=== PATIENT | male | born 1940 | race Caucasian/White ===

== ENCOUNTER 2017-01-08 16:06 | Inpatient (IN) | payer MEDICARE, OTHER ==
[~2017-01-08] VITALS: Ht 180.3 cm; Wt 93.5 kg
[~2017-01-08 16:06] MED LIST: ADVIL200 MG PO; AZITHROMYCIN250 MG PO; CEFPODOXIME PR200 MG PO; FLOMAX 0.4MG C0.4 MG PO; HYDROCODONE 5/500 OR; RAPAFLO8 MG PO; VALIUM 10MG TAB10 MG PO
[2017-01-08 16:08] VITALS: BP 117/68
[2017-01-08] MEDS ORDERED: FLOMAX 0.4MG C0.4 MG PO (16:16)
[2017-01-08] MEDS ORDERED: PRIMIDONE 50 MG50 MG PO (16:18)
[2017-01-08 16:42] LABS: HEMOGLOBIN 14.9 g/dL (14.1-18.0); LYMPH # 1.5 K/mm3 (0.7-4.5); LYMPH % 20.6 % (10-50)
[2017-01-08 16:46] LABS: ARTERIAL PO2 83.4 MMHG (80-100); ARTERIAL TCO2 56.8 MMOL/L (23-27)
[2017-01-08 16:47] LABS: ALLEN'S TEST Y; ARTERIAL ABE 24.7 MMOL/L (-2.4-+2.3); OXYGEN 3
--- NOTE | 2017-01-08 18:03 | Emergency Room Report ---
History of Present Illness Time Seen by MD Delacruz Presenting Problem in Triage Pt arrived:Wheelchair Presenting Problem:PT C/O INCREASED WEAKNESS TODAY. STATES PT HAS BEEN SICK SINCE OCT OF THIS YEAR. PT IS D/T BEGIN RADIATION TO HIS THROAT FOR A DX OF THROAT CANCER. 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 N Clinical Suspician of Infection? N Mental Status: 1 - Regular (Normal Baseline) Sepsis Risk:Possible Sepsis Risk Have you (or family members/close friends) recently traveled outside the [place]? N If Yes, where/when: Have you had exposure to infectious disease within the past month? N TB? Other? Specify: Source patient, RN notes reviewed, family, old records Exam Limitations no limitations Comment pt with hx of laryngeal cancer - who has been more somulent lately and presents to ed - he is to start therapy next week and he has not used his bpap this week Cardiac Chest Pain Chest pain indicative of cardiac No Timing/Duration this evening Severity moderate ALLERGIES Coded Allergies: No Known Allergies (10/31/16) Home Medications Reported Medications TAMSULOSIN HCL (Flomax 0.4MG) 0.4 MG PO QHS Primidone (Primidone) 25 MG PO QHS Diazepam (Valium 10MG) 10 MG PO BID Ibuprofen (Advil) 200 MG PO PRN History Medical History General CAD? No Angina: No [place]: No Hypertension? No Hyperlipidemia? No CHF? No DVT? No PE? No COPD? No Asthma? No Anemia? No GERD? No Gastric ulcers? No GI Bleed? No Hernia? Yes Thyroid Problems? No Hypothyroidism? No CVA? No Seizures? No Diabetes? No Renal Insuffiency? No End Stage Renal Disease? No UTI? No Stones? Yes BPH? No GB Disease: No Nephritic Syndrome? No Asplenia? No Hepatitis? No Sickle Cell Disease? No Arthritis? No Migraines? No Cataracts? No Glaucoma? No MRSA? No HIV? No TB? No Anxiety? No Depression? No Cancer? Yes Site: PROSTATE; THROAT Immunization Hx DT/Tetanus Unknown Flu NEVER Pneumonia NEVER Surgical Hx Previous Surgery?Y COLONOSCOPY KIDNEY STONES HAND Back Surgery TONSILS Family History Family Hx Diabetes No CAD No Hypertension Yes Hyperlipidemia No Cancer Yes TB No Social History Smoking Hx Smoker: Former Smoker Tobacco: Yes Type Cigarettes Packs/day < 1 Pack Alcohol Alcohol: No Drugs none Review of Systems All Other Systems Reviewed and Negative Constitutional denies fever Eyes denies drainage ENT denies: ear pain, epistaxis, throat pain. Respiratory see HPI, denies cough, shortness of breath, denies wheezing Cardiovascular denies chest pain, denies palpitations, denies syncope Gastrointestinal denies abdominal pain, denies diarrhea, denies vomiting Genitourinary denies: dysuria, frequency, hesitancy, hematuria. Musculoskeletal denies back pain, denies joint pain, denies joint swelling, denies neck pain Skin denies rash Psychiatric/Neurological denies headache, denies seizure Physical Exam Vital Signs Vital Signs Date Time Temp Pulse Resp B/P Pulse O2 O2 Flow FiO2 Ox Delivery Rate 01/08 1925 98.6 102 20 120/68 95 01/08 1822 98 20 124/72 96 01/08 1736 100 20 135/83 95 01/08 1631 87 01/08 1608 98.6 97 22 117/68 87 - WBC >12,000 or <4,000 or 10% bands? 2 or more SIRS Criteria Met? B/P:120/68 MAP:84 Creatinine >2.0? UA output<0.5ml/kg/hr for 2 hrs? Platelet count >100,000? Lactate >2.0mmol/1? INR >1.2 or PTT > than 60 sec? Evidence of Organ Dysfunction? Provider documented clinical suspician of infection? N Sepsis Criteria Count: 2 Sepsis Risk: Possible Sepsis Risk General Appearance no apparent distress Eye Exam - bilateral eye PERRL, bilateral eye EOMI Ear, Nose, Throat no acute changes Neck supple Respiratory Status No: respiratory distress. Lung Sounds bilateral: decreased breath sounds. 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 No Results/Orders Laboratory Tests 01/08/17 1644: ABG pH 7.21 *L, ABG pCO2 (Temp Corrct 135.6 H, ABG pO2 (Temp Correct 83.4, ABG HCO3 52.6 H, ABG Total CO2 56.8 H, ABG O2 Sat (Calculated) 94.8, ABG Base Excess 24.7 H, Braeden Test Y, Blood Gas Comments R/R 01/08/17 1625: Lactic Acid 0.6 01/08/17 162: Creatine Kinase 52, CK-MB (CK-2) Rel Index 2.9, CK and CKMB Interp 1.5, Troponin I < 0.02 01/08/17 1625: Sodium 140, Potassium 4.5, Chloride 96 L, Carbon Dioxide 52 *H, BUN 11, Creatinine 0.7 L, Estimated Creat Clear 115, Estimated GFR (MDRD) 110, Glucose 115 H, Calcium 9.5, Total Bilirubin 0.3, AST 15, ALT 22, Alkaline Phosphatase 45 L, Total Protein 7.6, Albumin 3.1 L, Globulin 4.5 H, Albumin/Globulin Ratio 0.7 L, WBC 7.4, RBC 5.01, Hgb 14.9, Hct 50.7, MCV 101.2 H, RDW 12.8, Plt Count 265, MPV 6.2 L, Gran % 72.3, Gran # 5.3, Lymphocytes % 20.6, Monocytes % 5.0, Eosinophils % 1.6, Basophils % 0.5, Lymphocytes # 1.5, Monocytes # 0.4, Eosinophils # 0.1, Basophils # 0.0, PUBS MCHC 29.6 L, MCH 29.9 Current Medication Orders Sig/Christian Start time Last Medication Dose Route Stop Time Status Admin Albuterol/Ipratropium 0 .STK-MED ONE 01/08 1634 DC INH Albuterol/Ipratropium 3 ML ONCE ONE 01/08 1630 DC 01/08 INH 01/08 1631 1630 Sodium Chloride 10 ML PRN PRN 01/08 1630 AC IV 01/09 1620 Orders Procedure Date/time Status Decision to admit 01/08 1829 Active RT Aerosol Treatment, Provide 01/08 1630 Active CARDIAC ENZYMES 01/08 1625 Complete URINALYSIS/COMPLETE 01/08 1623 Active ELECTROCARDIOGRAM REQUEST 01/08 1621 Active RT REQUEST DUONEB 01/08 1621 Active ARTERIAL BLOOD GAS REQUEST 01/08 1621 Active IV SALINE LOCK 01/08 1621 Active OXYGEN PER NURSE 01/08 1621 Active SOLID PLASTERER 01/08 1621 Active CULTURE, BLOOD 01/08 1621 Active LACTIC ACID 01/08 1621 Complete CBC WITH AUTO DIFF 01/08 1621 Complete CHEM 12 PROFILE 01/08 1621 Complete 12 LEAD EKG-BRADLEY (INITIAL) 01/08 UNK Active CM/EKG 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 ST/Twave chgs XRAY/CT/US XRAY/CT/US XRAY chest XR interpretation by reviewed by me Xray Results normal/NAD Departure Departure Time of Disposition 1831 Disposition Still a Patient Clinical Impression Primary Impression: Respiratory failure Qualifiers: Chronicity: acute on chronic Respiratory failure complication: hypercapnia Qualified Code: J96.22 - Acute and chronic respiratory failure with hypercapnia Secondary Impressions: Laryngeal cancer Condition STABLE Referrals Salas Kumari MD (Family) discussed with dr mary anne RESENDEZ Critical Care Critical Care No at 1948
--- NOTE | 2017-01-08 18:47 | RADIOLOGY REPORT PS360 ---
CHEST-PORTABLE COMPARISON: PA and lateral chest 10/31/2016 HISTORY: Weakness, shortness of breath TECHNIQUE: Portable upright chest FINDINGS: This is a somewhat poor inspiration however lung martinez are clear of infiltrate. There is minimal scarring or atelectasis at the left base. Cardiac size is normal and the vascularity is normal and is no pleural fluid. IMPRESSION: Possible minimal left basilar atelectasis otherwise negative chest
[2017-01-08 20:35] VITALS: BP 120/68
[2017-01-08 20:50] VITALS: BP 144/80
[2017-01-08] MEDS ORDERED: SYMBICORT1 AER IH (20:52)
[2017-01-09] VITALS (17 sets, daily range): BP systolic 87–160; BP diastolic 48–80
[2017-01-09 07:04] LABS: HEMOGLOBIN 14.5 g/dL (14.1-18.0); LYMPH # 1.7 K/mm3 (0.7-4.5); LYMPH % 18.1 % (10-50)
--- NOTE | 2017-01-09 08:39 | HISTORY AND PHYSICAL REPORT ---
Demographics: Admit date: 01/08/17 Chief complaint: Mental status change PRIMARY DIAGNOSIS: acute respiratory failure Allergies: Coded Allergies: No Known Allergies (10/31/16) History of present illness: History of present illness: 76-year-old male with chronic obstructive pulmonary disease and recent diagnosis of laryngeal cancer presented to the emergency department with change in mental status. Patient was described as being increasingly drowsy by family. Workup in the emergency department revealed hypercapnia and respiratory failure. Patient was admitted and placed on BiPAP. The rest of his labs on admission were unremarkable and chest x-ray did not reveal any pneumonia. This morning the patient is drowsy and does not respond to vocal or tactile stimulus. Nursing staff reports O2 sats on routine vital checks in the 50s and 60s. Patient's BiPAP is in place. Repeat ABG this morning shows worsening of his respiratory failure with pH of 6.9. Past medical history: Family HX Family Hx Insignificant No Diabetes No CAD No Hypertension Yes Hyperlipidemia No Cancer Yes TB No Immunization HX DT/Tetanus Unknown Flu NEVER Pneumonia NEVER TB Test in last year No General CAD? No Angina: No [place]: No Hypertension? No Hyperlipidemia? No CHF? No DVT? No PE? No COPD? No Asthma? No Anemia? No GERD? No Gastric ulcers? No GI Bleed? No Hernia? Yes Thyroid Problems? No Hypothyroidism? No CVA? No Seizures? No Diabetes? No Renal Insuffiency? No UTI? No Stones? Yes BPH? No GB Disease: No Nephritic Syndrome? No Asplenia? No Hepatitis? No Sickle Cell Disease? No Arthritis? No Migraines? No Cataracts? No Glaucoma? No MRSA? No HIV? No TB? No Anxiety? No Depression? No Cancer? Yes Site: PROSTATE; THROAT Past Surgical HX Previous Surgery?Y COLONOSCOPY KIDNEY STONES HAND Back Surgery TONSILS Current home meds: Reported Medications BUDESONIDE/FORMOTEROL FUMARATE (Symbicort 80-4.5 Mcg Inhaler) 1 PUFF IH BID TAMSULOSIN HCL (Flomax 0.4MG) 0.4 MG PO QHS Primidone (Primidone) 25 MG PO QHS Diazepam (Valium 10MG) 10 MG PO BID Ibuprofen (Advil) 200 MG PO PRN Social Hx: Smoking HX Tobacco Yes Type Cigarettes Packs/day < 1 PACK Are you/the child exposed to second-hand smoke: Yes Alcohol Alcohol: No Hx of Drug Use Drug Use? No Patien't marital status is Patient's support system is good Review of systems: Constitutional weakness. Respiratory shortness of breath, SOB with excertion. Cardiovascular no symptoms reported Gastrointestinal/Abdominal no symptoms reported Genitourinary no symptoms reported. Musculoskeletal no symptoms reported. Neurological Yes: no symptoms reported. Exam: Lab data for last 24 hours: Laboratory Tests 01/09/17 0639: Sodium 141, Potassium 5.4 H, Chloride 98, Carbon Dioxide 49 *H, BUN 12, Creatinine 0.7 L, Estimated Creat Clear 113, Estimated GFR (MDRD) 110, Glucose 113 H, Calcium 9.4, WBC 9.2, RBC 4.73, Hgb 14.5, Hct 48.7, MCV 103.0 H, RDW 12.7, Plt Count 254, MPV 6.2 L, Gran % 75.0, Gran # 6.9, Lymphocytes % 18.1, Monocytes % 5.4, Eosinophils % 0.9, Basophils % 0.6, Lymphocytes # 1.7, Monocytes # 0.5, Eosinophils # 0.1, Basophils # 0.1, PUBS MCHC 29.9 L, MCH 30.7 01/08/17 1644: ABG pH 7.21 *L, ABG pCO2 (Temp Corrct 135.6 H, ABG pO2 (Temp Correct 83.4, ABG HCO3 52.6 H, ABG Total CO2 56.8 H, ABG O2 Sat (Calculated) 94.8, ABG Base Excess 24.7 H, Braeden Test Y, Blood Gas Comments R/R 01/08/17 1625: Lactic Acid 0.6 01/08/17 1625: Creatine Kinase 52, CK-MB (CK-2) Rel Index 2.9, CK and CKMB Interp 1.5, Troponin I < 0.02 01/08/17 1625: Sodium 140, Potassium 4.5, Chloride 96 L, Carbon Dioxide 52 *H, BUN 11, Creatinine 0.7 L, Estimated Creat Clear 115, Estimated GFR (MDRD) 110, Glucose 115 H, Calcium 9.5, Total Bilirubin 0.3, AST 15, ALT 22, Alkaline Phosphatase 45 L, Total Protein 7.6, Albumin 3.1 L, Globulin 4.5 H, Albumin/Globulin Ratio 0.7 L, WBC 7.4, RBC 5.01, Hgb 14.9, Hct 50.7, MCV 101.2 H, RDW 12.8, Plt Count 265, MPV 6.2 L, Gran % 72.3, Gran # 5.3, Lymphocytes % 20.6, Monocytes % 5.0, Eosinophils % 1.6, Basophils % 0.5, Lymphocytes # 1.5, Monocytes # 0.4, Eosinophils # 0.1, Basophils # 0.0, PUBS MCHC 29.6 L, MCH 29.9 Microbiology 01/08 1625 BLOOD: Anaerobic Blood Culture - RECD 01/08 1625 BLOOD: Aerobic Blood Culture - RECD 01/08 1625 BLOOD: Anaerobic Blood Culture - RECD 01/08 1625 BLOOD: Aerobic Blood Culture - RECD Admission vital signs: 1ST Vital Signs Result Date Time Pulse Ox 87 01/08 1608 B/P 117/68 01/08 1608 Temp 98.6 01/08 1608 Pulse 97 01/08 1608 Resp 22 01/08 1608 O2 Delivery OXYGEN 01/08 2035 Additional information: Patient is not arousable but does not appear to be in any distress. Pupils are reactive to light. BiPAP is in place. Neck is Without carotid bruits or lymphadenopathy. Lungs have expiratory wheezes with fair aeration even with BiPAP. Heart has a regular rate and rhythm. Abdomen is soft and nontender. Extremities are warm to the touch. Plan: Problem List 1. Laryngeal cancer 2. Acute respiratory failure with hypoxia and hypercapnia 3. Chronic obstructive pulmonary disease with (acute) exacerbation Plan: Transfer to special care unit this morning. Patient be intubated and placed on ventilator to reverse his hypercapnia. Continue IV fluids, Solu-Medrol, aerosols. Patient's condition is guarded. at 0838
[2017-01-09 09:33] LABS: ARTERIAL PO2 39.3 MMHG (80-100)
[2017-01-09 09:34] LABS: ALLEN'S TEST PATIENT UNABLE; OXYGEN 100; PRESSURE SUPPORT 6; VENT RATE 15
--- NOTE | 2017-01-09 10:54 | PHARMACY CLINIC NOTE ---
Patient Demographics Patient Demographics Admission date: 01/08/17 Date: 01/09/17 Time: 1054 Allergies Coded Allergies: No Known Allergies (10/31/16) HEIGHT- FT: 5 IN: 11.00 K.997 VTE General Information Labs: Laboratory Tests 01/09 01/08 0639 1625 Hematology Hgb (14.1 - 18.0 g/dL) 14.5 14.9 Hct (42.0 - 52.0 %) 48.7 50.7 Plt Count (142 - 424 K/mm3) 254 265 Disclaimer The following section includes nursing documentation that has been pulled in for pharmacy review. Patient's VTE score: 4 Patient's VTE Risk: LOW RISK Clinical trial participant? No VTE prophylaxis [id number] VTE prophylaxis ordered? Yes Type of prophylaxis/treatment: DEBO at 1052
[2017-01-09 10:59] LABS: URINE BILIRUBIN - DIPSTICK NEGATIVE (NEG); URINE BLOOD 2+ (NEG)
[2017-01-09 11:09] LABS: ARTERIAL PO2 278.7 MMHG (80-100); ARTERIAL TCO2 42.9 MMOL/L (23-27)
[2017-01-09 11:10] LABS: ALLEN'S TEST PATIENT UNABLE; ARTERIAL ABE 17.6 MMOL/L (-2.4-+2.3); OXYGEN 100; VENT RATE 24
--- NOTE | 2017-01-09 15:46 | CONSULT NOTE ---
Pharmacokinetic Consult Date of consult: 01/09/17 Time of consult: 1543 Referring provider: DR. VANEGAS Reason for consult: GENTAMICIN DOSING Allergies: Coded Allergies: No Known Allergies (10/31/16) Home Medications: Reported Medications BUDESONIDE/FORMOTEROL FUMARATE (Symbicort 80-4.5 Mcg Inhaler) 1 PUFF IH BID TAMSULOSIN HCL (Flomax 0.4MG) 0.4 MG PO QHS Primidone (Primidone) 25 MG PO QHS Diazepam (Valium 10MG) 10 MG PO BID Ibuprofen (Advil) 200 MG PO PRN Height (feet): 5 Height (inches): 11.00 Medical History: CAD? No Angina: No [place]: No Hypertension? No Hyperlipidemia? No CHF? No DVT? No PE? No COPD? No Asthma? No Anemia? No GERD? No Gastric ulcers? No GI Bleed? No Hernia? Yes Thyroid Problems? No Hypothyroidism? No CVA? No Seizures? No Diabetes? No Renal Insuffiency? No UTI? No Stones? Yes BPH? No GB Disease: No Nephritic Syndrome? No Asplenia? No Hepatitis? No Sickle Cell Disease? No Arthritis? No Migraines? No Cataracts? No Glaucoma? No MRSA? No HIV? No TB? No Anxiety? No Depression? No Cancer? Yes Site: PROSTATE; THROAT Labs: Laboratory Tests 01/09/17 1055: ABG pH 7.48 H, ABG pCO2 (Temp Corrct 57.2 H, ABG pO2 (Temp Correct 278.7 H, ABG HCO3 41.2 H, ABG Total CO2 42.9 H, ABG O2 Sat (Calculated) 99.3, ABG Base Excess 17.6 H, Braeden Test PATIENT UNABLE, Vent Rate 24, Tidal Volume 500, POC PEEP 5, Blood Gas Comments RIGHT RADIAL 01/09/17 0810: ABG pH 6.97 *L, ABG pO2 (Temp Correct 39.3 *L, ABG O2 Sat (Calculated) 63.1 *L, Braeden Test PATIENT UNABLE, Vent Rate 15, Tidal Volume BIPAP 12/6, Pressure Support 6, Blood Gas Comments RIGHT RADIAL 01/09/17 0639: Sodium 141, Potassium 5.4 H, Chloride 98, Carbon Dioxide 49 *H, BUN 12, Creatinine 0.7 L, Estimated Creat Clear 113, Estimated GFR (MDRD) 110, Glucose 113 H, Calcium 9.4, WBC 9.2, RBC 4.73, Hgb 14.5, Hct 48.7, MCV 103.0 H, RDW 12.7, Plt Count 254, MPV 6.2 L, Gran % 75.0, Gran # 6.9, Lymphocytes % 18.1, Monocytes % 5.4, Eosinophils % 0.9, Basophils % 0.6, Lymphocytes # 1.7, Monocytes # 0.5, Eosinophils # 0.1, Basophils # 0.1, PUBS MCHC 29.9 L, MCH 30.7 01/08/17 1644: ABG pH 7.21 *L, ABG pCO2 (Temp Corrct 135.6 H, ABG pO2 (Temp Correct 83.4, ABG HCO3 52.6 H, ABG Total CO2 56.8 H, ABG O2 Sat (Calculated) 94.8, ABG Base Excess 24.7 H, Braeden Test Y, Blood Gas Comments R/R 01/08/17 1625: Lactic Acid 0.6 01/08/17 1625: Creatine Kinase 52, CK-MB (CK-2) Rel Index 2.9, CK and CKMB Interp 1.5, Troponin I < 0.02 01/08/17 1625: Sodium 140, Potassium 4.5, Chloride 96 L, Carbon Dioxide 52 *H, BUN 11, Creatinine 0.7 L, Estimated Creat Clear 115, Estimated GFR (MDRD) 110, Glucose 115 H, Calcium 9.5, Total Bilirubin 0.3, AST 15, ALT 22, Alkaline Phosphatase 45 L, Total Protein 7.6, Albumin 3.1 L, Globulin 4.5 H, Albumin/Globulin Ratio 0.7 L, WBC 7.4, RBC 5.01, Hgb 14.9, Hct 50.7, MCV 101.2 H, RDW 12.8, Plt Count 265, MPV 6.2 L, Gran % 72.3, Gran # 5.3, Lymphocytes % 20.6, Monocytes % 5.0, Eosinophils % 1.6, Basophils % 0.5, Lymphocytes # 1.5, Monocytes # 0.4, Eosinophils # 0.1, Basophils # 0.0, PUBS MCHC 29.6 L, MCH 29.9 Microbiology 01/10 916 SPUTUM: Sputum Culture - RECD 01/10 916 SPUTUM: Gram Stain - RECD 01/08 162 BLOOD: Anaerobic Blood Culture - RECD 01/08 162 BLOOD: Aerobic Blood Culture - RECD 01/08 162 BLOOD: Anaerobic Blood Culture - RECD 01/08 162 BLOOD: Aerobic Blood Culture - RECD Plan: BASED ON PATIENT'S FACTORS, RECOMMEND STARTING GENTAMICIN 360 MG (~5 MG/KG DBW OF 75 KG) Q24H AT THIS TIME. WILL OBTAIN LEVELS TONIGHT AND IN THE AM TO DETERMINE CLEARANCE. PHARMACY WILL FOLLOW DAILY AND ADJUST APPROPRIATE. CHARITO YANEZ, PHARMD at 4510
--- NOTE | 2017-01-09 16:38 | Procedure Note ---
Bedside procedures Intubation Date of procedure: 01/09/17 Time of procedure: 929 Intubation: Risks/benefits discussed with pt/guardian? No (pt obtunded /emergency) Time of Intubation 929 Intubation Method orotracheal Tube Size (cm) 6.0 Medications Atropine mg- (none) Breath Sounds after Intubation: equal Intubation Complications no complications, pt with laryngeal cancer , only could use small tube Post Intubation Xray Yes at 5543
--- NOTE | 2017-01-09 17:15 | RADIOLOGY REPORT PS360 ---
CHEST-PORTABLE Ordering Physician: Salas Kumari MD Patient Age: 76 years: Male HISTORY: ET TUBE PLACEMENT TECHNIQUE: Portable chest for ET tube placement FINDINGS . ET tube is in place. The tip is at the level of the head of the clavicles ~. Adequate position. The lungs appear well expanded and clear. Improved expansion versus chest film 01/08/2017, which showed mild bibasilar atelectasis. There is still some mild right basilar scarring and atelectasis 5 cm above the danielito.. IMPRESSION: ------ ET tube satisfactory position. A better expansion of lungs versus yesterday's study. Trace Mild bibasilar atelectasis most evident on right lung base
[2017-01-10] VITALS (25 sets, daily range): BP systolic 97–1202; BP diastolic 53–74
[2017-01-10 05:36] LABS: LYMPH # 0.9 K/mm3 (0.7-4.5); LYMPH % 13.6 % (10-50)
[2017-01-10 05:39] LABS: HEMOGLOBIN 12.8 g/dL (14.1-18.0)
[2017-01-10 05:51] LABS: GENTAMYCIN RANDOM 2.1 ug/ml (4.0-10.0)
[2017-01-10 06:27] LABS: ARTERIAL ABE 15.7 MMOL/L (-2.4-+2.3); ARTERIAL PO2 145.7 MMHG (80-100); ARTERIAL TCO2 38.7 MMOL/L (23-27); OXYGEN 60; VENT RATE 16
[2017-01-10 06:28] LABS: ALLEN'S TEST PATIENT UNABLE
--- NOTE | 2017-01-10 06:42 | RADIOLOGY REPORT PS360 ---
CHEST-PORTABLE HISTORY: Respiratory failure ET TUBE PLACEMENT ORDERING PHYSICIAN: Salas Kumari MD PATIENT AGE: 76 years COMPARISON: 01/09/2017 FINDINGS: Endotracheal tube tip is in good position well above the danielito at least 5 cm above the expected position of the danielito. There remains minimal bibasilar atelectasis. Right basilar atelectasis has improved. COPD suspected. IMPRESSION: Good position of endotracheal tube with mild bibasilar atelectasis
--- NOTE | 2017-01-10 06:50 | ACUTE CARE PROGRESS NOTE (QUA) ---
Progress Notes Subjective Date 01/10/17 Time 0643 Note Patient has now been intubated for the last 24 hours. He has done well on mechanical ventilation and sedated on propofol. Nursing staff reports a decrease in urine output. Patient did have fevers yesterday afternoon and was started on antibiotics per sepsis protocol. Patient is resting comfortably on mechanical ventilation. Lungs are clear to auscultation. Heart has regular rate and rhythm. Extremities are without swelling. Trial of CPAP this morning to assess readiness for extubation. I have discussed with his . We will attempt to contact his oncologist as well to discuss the case Objective Findings Last VS-Temp:98.6 B/P:106/60 Pulse:64 Resp:17 SaO2:98 OXYGEN Last weight lbs:194 oz:0 K.998 Method:Bed Scales Laboratory Tests 01/10/17 0540: ABG pH 7.59 *H, ABG pCO2 (Temp Corrct 40.3, ABG pO2 (Temp Correct 145.7 H, ABG HCO3 37.4 H, ABG Total CO2 38.7 H, ABG O2 Sat (Calculated) 98.9, ABG Base Excess 15.7 H, Braeden Test PATIENT UNABLE, Vent Rate 16, Tidal Volume 500, POC PEEP 5, Blood Gas Comments RIGHT BRACHIAL 01/10/17 0510: Sodium 137, Potassium 3.8, Chloride 100, Carbon Dioxide 37 H, BUN 30 H, Creatinine 1.0, Estimated Creat Clear 79, Estimated GFR (MDRD) 73, Glucose 136 H, Calcium 8.5, Total Bilirubin 0.3, AST 19, ALT 19, Alkaline Phosphatase 36 L, Total Protein 5.8 L, Albumin 2.2 L, Globulin 3.6 H, Albumin/Globulin Ratio 0.6 L, WBC 6.7, RBC 4.15 L, Hgb 12.8 L, Hct 40.6 L, MCV 98.0 H, RDW 12.9, Plt Count 212, MPV 7.1 L, Gran % 79.6, Gran # 5.3, Lymphocytes % 13.6, Monocytes % 5.8, Eosinophils % 0.8, Basophils % 0.2, Lymphocytes # 0.9, Monocytes # 0.4, Eosinophils # 0.1, Basophils # 0.0, PUBS MCHC 31.5 L, MCH 30.8 , Random Gentamicin 2.1 L 01/09/17 1910: Random Gentamicin 8.5 01/09/17 1055: ABG pH 7.48 H, ABG pCO2 (Temp Corrct 57.2 H, ABG pO2 (Temp Correct 278.7 H, ABG HCO3 41.2 H, ABG Total CO2 42.9 H, ABG O2 Sat (Calculated) 99.3, ABG Base Excess 17.6 H, Braeden Test PATIENT UNABLE, Vent Rate 24, Tidal Volume 500, POC PEEP 5, Blood Gas Comments RIGHT RADIAL 01/09/17 0810: ABG pH 6.97 *L, ABG pO2 (Temp Correct 39.3 *L, ABG O2 Sat (Calculated) 63.1 *L, Braeden Test PATIENT UNABLE, Vent Rate 15, Tidal Volume BIPAP 12/6, Pressure Support 6, Blood Gas Comments RIGHT RADIAL Microbiology 01/10 916 SPUTUM: Sputum Culture - RES 01/10 916 SPUTUM: Gram Stain - RES Assessment/Plan Problem List 1. Laryngeal cancer 2. Acute respiratory failure with hypoxia and hypercapnia 3. Chronic obstructive pulmonary disease with (acute) exacerbation Patient condition Stable Plan: continue current care This inpt stay is expected to cross 2 MNs from start of care Yes at 0649
--- NOTE | 2017-01-10 11:34 | CONSULT NOTE ---
Pharmacokinetic Consult Date of consult: 01/10/17 Time of consult: 1130 Referring provider: DR. VANEGAS Reason for consult: GENTAMICIN LEVELS Allergies: Coded Allergies: No Known Allergies (10/31/16) Home Medications: Reported Medications BUDESONIDE/FORMOTEROL FUMARATE (Symbicort 80-4.5 Mcg Inhaler) 1 PUFF IH BID TAMSULOSIN HCL (Flomax 0.4MG) 0.4 MG PO QHS Primidone (Primidone) 25 MG PO QHS Diazepam (Valium 10MG) 10 MG PO BID Ibuprofen (Advil) 200 MG PO PRN Height (feet): 5 Height (inches): 11.00 Medical History: CAD? No Angina: No [place]: No Hypertension? No Hyperlipidemia? No CHF? No DVT? No PE? No COPD? No Asthma? No Anemia? No GERD? No Gastric ulcers? No GI Bleed? No Hernia? Yes Thyroid Problems? No Hypothyroidism? No CVA? No Seizures? No Diabetes? No Renal Insuffiency? No UTI? No Stones? Yes BPH? No GB Disease: No Nephritic Syndrome? No Asplenia? No Hepatitis? No Sickle Cell Disease? No Arthritis? No Migraines? No Cataracts? No Glaucoma? No MRSA? No HIV? No TB? No Anxiety? No Depression? No Cancer? Yes Site: PROSTATE; THROAT Labs: Laboratory Tests 01/10/17 0540: ABG pH 7.59 *H, ABG pCO2 (Temp Corrct 40.3, ABG pO2 (Temp Correct 145.7 H, ABG HCO3 37.4 H, ABG Total CO2 38.7 H, ABG O2 Sat (Calculated) 98.9, ABG Base Excess 15.7 H, Braeden Test PATIENT UNABLE, Vent Rate 16, Tidal Volume 500, POC PEEP 5, Blood Gas Comments RIGHT BRACHIAL 01/10/17 0510: Sodium 137, Potassium 3.8, Chloride 100, Carbon Dioxide 37 H, BUN 30 H, Creatinine 1.0, Estimated Creat Clear 79, Estimated GFR (MDRD) 73, Glucose 136 H, Calcium 8.5, Total Bilirubin 0.3, AST 19, ALT 19, Alkaline Phosphatase 36 L, Total Protein 5.8 L, Albumin 2.2 L, Globulin 3.6 H, Albumin/Globulin Ratio 0.6 L, WBC 6.7, RBC 4.15 L, Hgb 12.8 L, Hct 40.6 L, MCV 98.0 H, RDW 12.9, Plt Count 212, MPV 7.1 L, Gran % 79.6, Gran # 5.3, Lymphocytes % 13.6, Monocytes % 5.8, Eosinophils % 0.8, Basophils % 0.2, Lymphocytes # 0.9, Monocytes # 0.4, Eosinophils # 0.1, Basophils # 0.0, PUBS MCHC 31.5 L, MCH 30.8 , Random Gentamicin 2.1 L 01/09/17 1910: Random Gentamicin 8.5 Problem List: 1. Community acquired pneumonia Plan: GENTAMICIN LEVELS: 3-HOUR POST-INFUSION: 8.5 MCG/ML CALCULATED PEAK: 11.25 MCG/ML 13-HOUR POST-INFUSION: 2.1 MCG/ML CALCULATED TROUGH: 0.45 MCG/ML BASED ON GENTAMICIN LEVELS, RECOMMEND CONTINUING GENTAMICIN 360 MG IV Q24H. PHARMACY WILL CONTINUE TO MONITOR DAILY AND ADJUST APPROPRIATE. at 3489
--- NOTE | 2017-01-10 19:12 | RADIOLOGY REPORT PS360 ---
CHEST-PORTABLE Ordering Physician: Salas Kumari MD Patient Age: 76 years: Male HISTORY: NG TUBE PLACEMENT, ETT PLACEMENT TECHNIQUE: AP portable upright chest FINDINGS NG tube is in place. With close inspection we can see to passing well into the stomach, with NG tube tip directed towards the lateral stomach near fundus.Report was called to floor by technologist ET tube remains satisfactory position 5 cm above danielito. The lungs remain well expanded and clear with nothing definitely acute. Only mild basilar atelectasis on left. Heart grace and mediastinal structures satisfactory. . IMPRESSION: NG tube now in place. Satisfactory position with tip tip near fundus stomach ET tube remains satisfactory position No active disease in the chest. Lungs clear
[2017-01-11] VITALS (23 sets, daily range): BP systolic 107–129; BP diastolic 59–89
[2017-01-11 07:05] LABS: ARTERIAL ABE 6.7 MMOL/L (-2.4-+2.3); ARTERIAL TCO2 31.5 MMOL/L (23-27)
[2017-01-11 07:06] LABS: ALLEN'S TEST ACCEPTABLE; OXYGEN 40; VENT RATE 16
--- NOTE | 2017-01-11 07:22 | ACUTE CARE PROGRESS NOTE (QUA) ---
Progress Notes Admission Date: 01/08/17 Antimicrobial stewardship: If this patient was administered antibiotics in the last 48 hours please complete the antimicrobial stewardship section of this template. Subjective Date 01/11/17 Time 0720 Note Patient has remained stable overnight. Yesterday afternoon transfer was arranged to the [facility] Intensive Care Unit. Accepting physician is Dr. Camargo. The wait for a bed is expected to last "days". Patient is sedated on the ventilator. Lungs are clear. Heart has a regular rate and rhythm. Abdomen is soft. Patient has a pustule on the anterior LEFT santos. Maintain on ventilator. Await transfer to . Bactroban to the pustule on his santos. Repeat chest x-ray this morning. Repeat ABG this morning. Continue tube feeds Objective Findings Last VS-Temp:99 B/P:119/66 Pulse:68 Resp:16 SaO2:97 OXYGEN Last weight lbs:199 oz:6 K.435 Method:Bed Scales Laboratory Tests 01/11/17 0655: ABG pH 7.48 H, ABG pCO2 (Temp Corrct 41.0, ABG pO2 (Temp Correct 96.0, ABG HCO3 30.0 H, ABG Total CO2 31.5 H, ABG O2 Sat (Calculated) 97, ABG Base Excess 6.7 H, Braeden Test ACCEPTABLE, Vent Rate 16, Tidal Volume 500, Blood Gas Comments RIGHT RADIAL 01/11/17 0530: Sodium 139, Potassium 3.6, Chloride 104, Carbon Dioxide 30, BUN 32 H, Creatinine 0.8, Estimated Creat Clear 102, Estimated GFR (MDRD) 94, Glucose 175 H, Calcium 8.2 L, Total Bilirubin 0.2, AST 26, ALT 25, Alkaline Phosphatase 35 L, Total Protein 5.9 L, Albumin 2.2 L, Globulin 3.7 H, Albumin/Globulin Ratio 0.6 L Assessment/Plan Problem List 1. Laryngeal cancer 2. Acute respiratory failure with hypoxia and hypercapnia 3. Chronic obstructive pulmonary disease with (acute) exacerbation Patient condition Stable Plan: continue current care This inpt stay is expected to cross 2 MNs from start of care Yes Antibiotic Stewardship (2) Current Culture Results Microbiology 01/10 916 SPUTUM: Sputum Culture - RES 01/10 916 SPUTUM: Gram Stain - RES 01/08 1625 BLOOD: Anaerobic Blood Culture - RECD 01/08 1625 BLOOD: Aerobic Blood Culture - RECD Infxn that will respond? Yes Right drug,dose,and route? Yes More targeted antbx? No How long atbx needed? 7 at 0744
[2017-01-11 07:23] LABS: HEMOGLOBIN 13.1 g/dL (14.1-18.0); LYMPH # 0.9 K/mm3 (0.7-4.5); LYMPH % 11.9 % (10-50)
--- NOTE | 2017-01-11 08:57 | RADIOLOGY REPORT PS360 ---
CHEST-PORTABLE COMPARISON: Portable semiupright chest 01/10/2017 HISTORY: NG tube placement and ETT placement TECHNIQUE: Portable semiupright chest FINDINGS: The endotracheal tube remains in fairly good position in proximal a 6 semiurgent above the danielito. The NG tube is seen in the stomach with the tip up against the greater curvature. There is a poor inspiration. There is a somewhat irregular opacity at the left base likely resenting carotid vascular markings although a minimal infiltrate or atelectasis cannot be excluded. IMPRESSION: Satisfactory position of endotracheal tube and NG tube, probable left basilar atelectasis noted
--- NOTE | 2017-01-11 16:44 | Discharge Summary ---
Demographics Admit date: 01/08/17 Discharge date: 01/12/17 Discharge diagnoses Problem List 1. Acute respiratory failure with hypoxia and hypercapnia 2. Laryngeal cancer 3. Chronic obstructive pulmonary disease with (acute) exacerbation History of present illness History of present illness 76-year-old male with chronic obstructive pulmonary disease and recent diagnosis of laryngeal cancer presented to the emergency department with change in mental status. Patient was described as being increasingly drowsy by family. Workup in the emergency department revealed hypercapnia and respiratory failure. Patient was admitted and placed on BiPAP. Patient uses C Pap at home but had been told he could stop using this because he could not tolerate the high pressures. The rest of his labs on admission were unremarkable and chest x-ray did not reveal any pneumonia. This morning the patient is drowsy and does not respond to vocal or tactile stimulus. Nursing staff reports O2 sats on routine vital checks in the 50s and 60s. Patient's BiPAP is in place. Repeat ABG this morning shows worsening of his respiratory failure with pH of 6.9. On the morning of the night when patient was found to be increasingly hypercapnic and unarousable he was transferred to the special care unit and intubated. Intubation was complicated by the laryngeal neoplasm and a size 6 ET tube had to be used for intubation. Once patient was mechanically ventilated his hypercapnia resolved rather quickly and his pH returned to normal. Patient will need a tracheostomy. Patient has known laryngeal neoplasm. His plan had been to undergo radiation treatments as an outpatient prior to his hospitalization. The [facility] was contacted and I spoke with community recreation programmer Dr. Camargo. She accepted the patient in transfer. Patient be transferred to [facility] when a bed is available. Patient was stable at time of transfer Medications Medications: Discharge meds are as noted. Follow up Follow up in office in: 4 WEEKS with: Salas Kumari MD at 0720
[2017-01-12] VITALS (12 sets, daily range): BP systolic 94–145; BP diastolic 44–65
--- NOTE | 2017-01-12 05:57 | RADIOLOGY REPORT PS360 ---
CHEST-PORTABLE HISTORY: ETT VERIFICATION ORDERING PHYSICIAN: Salas Kumari MD PATIENT AGE: 76 years COMPARISON: None available FINDINGS: Endotracheal tube tip is difficult to visualize but does appear to be above the danielito by proximally 4.6 cm. Nasogastric tube is present with the tip in the region of the body the stomach. Bibasilar atelectatic changes are once again noted. Normal heart size. IMPRESSION: 1. Good position of the endotracheal tube, nasogastric tube. 2. Continued bibasilar atelectasis slightly worse
[2017-01-12 06:38] LABS: ARTERIAL PO2 82.2 MMHG (80-100)
[2017-01-12 06:39] LABS: ALLEN'S TEST PATIENT UNABLE; ARTERIAL ABE 7.6 MMOL/L (-2.4-+2.3); ARTERIAL TCO2 32.7 MMOL/L (23-27); OXYGEN 40; VENT RATE 16
[2017-01-12 06:52] LABS: HEMOGLOBIN 13.6 g/dL (14.1-18.0); LYMPH # 0.6 K/mm3 (0.7-4.5); LYMPH % 8.1 % (10-50)
--- NOTE | 2017-01-12 07:19 | ACUTE CARE PROGRESS NOTE (QUA) ---
Progress Notes Subjective Date 01/12/17 Time 0717 Note Patient remained stable on the ventilator. No issues overnight. He had excellent response to the Lasix he was given for diuresis. He awakens easily. Moves all extremities. Lungs are clear. Heart has a regular rate and rhythm. Abdomen is soft with active bowel sounds. Extremities have no edema. The pustule on his LEFT leg has crusted over. Objective Findings Last VS-Temp:98.5 B/P:107/61 Pulse:65 Resp:16 SaO2:100 OXYGEN Last weight lbs:199 oz:6 K.435 Method:Bed Scales Laboratory Tests 01/12/17 0625: ABG pH 7.47 H, ABG pCO2 (Temp Corrct 44.5, ABG pO2 (Temp Correct 82.2, ABG HCO3 31.4 H, ABG Total CO2 32.7 H, ABG O2 Sat (Calculated) 96.3, ABG Base Excess 7.6 H, Braeden Test PATIENT UNABLE, Vent Rate 16, Tidal Volume 500, POC PEEP 5, Blood Gas Comments LEFT BRACHIAL 01/12/17 0525: Sodium 138, Potassium 3.6, Chloride 101, Carbon Dioxide 34 H, BUN 32 H, Creatinine 0.7 L, Estimated Creat Clear 117, Estimated GFR (MDRD) 110, Glucose 186 H, Calcium 8.3 L, Amylase 19 L, WBC 7.5, RBC 4.51 L, Hgb 13.6 L, Hct 42.0, MCV 93.0, RDW 13.8, Plt Count 216, MPV 7.5, Gran % 85.9 H, Gran # 6.5, Lymphocytes % 8.1 L, Monocytes % 5.8, Eosinophils % 0.1, Basophils % 0.1, Lymphocytes # 0.6 L, Monocytes # 0.4, Eosinophils # 0.0, Basophils # 0.0, PUBS MCHC 32.4, MCH 30.1 I&O Past 24 Hrs-ending at 0700 04/ 0700 Intake Total 4032.4 Output Total 3440 Balance 592.4 Assessment/Plan Problem List 1. Acute respiratory failure with hypoxia and hypercapnia 2. Laryngeal cancer 3. Chronic obstructive pulmonary disease with (acute) exacerbation Patient condition Stable Plan: continue current care, arrange facility transfer This inpt stay is expected to cross 2 MNs from start of care Yes Antibiotic Stewardship (2) Infxn that will respond? Yes Right drug,dose,and route? Yes More targeted antbx? No at 0718
[2017-01-12 12:13] LABS: NEUTROPHILS 89 % (42-76)
== END 2017-01-12 13:15 | disposition short-term general hospital (02) | DRG 208 ==
LOC: ER 16:06 → 2ND 18:31 → ICU 19:25 → ER 19:33 → 2ND 19:33 → ICU 01-09 09:20
PROVIDERS: Emergency Medicine; Family Medicine
PROC: 0BH17EZ Insertion of Endotracheal Airway into Trachea, Via Natural or Artificial Opening (ICD-10-PCS; principal; 2017-01-09)
PROC: 5A1945Z Respiratory Ventilation, 24-96 Consecutive Hours (ICD-10-PCS; principal; 2017-01-09)
DX: J96.02 Acute respiratory failure with hypercapnia (principal); J44.1 Chronic obstructive pulmonary disease with (acute) exacerbation; C32.9 Malignant neoplasm of larynx, unspecified; Z99.81 Dependence on supplemental oxygen; J96.01 Acute respiratory failure with hypoxia; Z87.891 Personal history of nicotine dependence
CPT/HCPCS: J2704

== ENCOUNTER 2017-04-28 14:41 | Emergency (ER) | payer MEDICARE, OTHER ==
[~2017-04-28] VITALS: Ht 180.3 cm; Wt 79.8 kg
[~2017-04-28 14:41] MED LIST changes: +PRIMIDONE 50 MG50 MG PO; +SYMBICORT1 AER IH
--- OUTSIDE RECORDS SUMMARY | 2017-04-28 15:01 | External Medical Summary Rpt ---
Author Author [facility] Organization [facility] Address Unknown Phone Unavailable Care Team Providers Care Business Intelligence Consultant Name Role Phone Jignesh GRANT PCP [phone] Encounter [facility] [id number] Date(s): 04/06/17 - 04/18/17 [facility] [address] [place] [address]- Discharge Disposition: OP Self Care or Home Attending Physician: JG GRANT MD-FAM Admitting Physician: JG GRANT MD-FAM Referring Physician: JG GRANT MD-FAM Reason for Visit OPEN WOUND Vital Signs No data available for this section Problem List No data available for this section Allergies, Adverse Reactions, Alerts No Known Allergies Medications No data available for this section Results No data available for this section Immunizations No data available for this section Procedures No data available for this section Social History No data available for this section Assessment and Plan No data available for this section Hospital Discharge Instructions No data available for this section
--- OUTSIDE RECORDS SUMMARY | 2017-04-28 15:01 | External Medical Summary Rpt ---
Author Author [facility] Organization [facility] Address Unknown Phone Unavailable Care Team Providers Care Utility Appraiser Name Role Phone Eulalia VANEGAS PCP [phone] Encounter [facility] [id number] Date(s): 04/25/17 - 04/25/17 [facility] [address] [place] [address]- Discharge Disposition: OP Self Care or Home Attending Physician: JG GRANT MD-FAM Admitting Physician: JG GRANT MD-FAM Referring Physician: JG GRANT MD-FAM Reason for Visit UNSP OPN WND LOW BACK AND PELV W/O PENET RETROPERITON, INIT Vital Signs No data available for this [...]
--- OUTSIDE RECORDS SUMMARY | 2017-04-28 15:01 | External Medical Summary Rpt ---
Author Author [facility] Organization [facility] Address Unknown Phone Unavailable Care Team Providers Care Airfield Manager Name Role Phone Jignesh GRANT PCP [phone] Encounter [facility] [id number] Date(s): 04/06/17 - 04/18/17 [facility] [address] [place] [address]- Discharge Disposition: OP Self Care or Home [...]
--- OUTSIDE RECORDS SUMMARY | 2017-04-28 15:01 | External Medical Summary Rpt ---
Author Author [facility] Organization [facility] Address Unknown Phone Unavailable Care Team Providers Care Bean Snipper Name Role Phone Eulalia VANEGAS PCP [phone] Encounter [facility] [id number] Date(s): 04/25/17 - 04/25/17 [facility] [address] [place] [address]- [phone] Discharge Disposition: OP Self Care or Home [...]
--- OUTSIDE RECORDS SUMMARY | 2017-04-28 15:03 | External Medical Summary Rpt ---
Author Author [facility] Organization [facility] Address Unknown Phone Unavailable
--- OUTSIDE RECORDS SUMMARY | 2017-04-28 15:03 | External Medical Summary Rpt ---
Author Author [facility] Organization [facility] Address Unknown Phone Unavailable Purpose Continuity of Care Document - through 2016
--- OUTSIDE RECORDS SUMMARY | 2017-04-28 15:03 | External Medical Summary Rpt ---
Demographics Preferred Language Georgian Marital Status Unknown Holiness Affiliation Unknown Race Unknown Ethnic Group Unknown Author Author , [facility] Address Unknown Phone Immunization Unable to retrieve immunization data due to connection failure with Immunization Registry. Please try again later.
--- OUTSIDE RECORDS SUMMARY | 2017-04-28 15:03 | External Medical Summary Rpt ---
Demographics Preferred Language Sami Marital Status Unknown Druze Affiliation Unknown Race Unknown Ethnic Group Unknown Author Author , [facility] Address Unknown Phone Immunization Unable to retrieve immunization data due to connection failure with Immunization Registry. Please try again later.
--- OUTSIDE RECORDS SUMMARY | 2017-04-28 15:03 | External Medical Summary Rpt ---
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 J95.830 POSTPROCEDU 04-14-2017 RAL HEMORRHAGE OF A RESPIRATORY SYSTEM ORGAN OR STRUCTURE FOLLOWING A RESPIRATORY SYSTEM PROCEDURE Y83.8 OTHER 04-14-2017 SURGICAL PROCEDURES THE CAUSE OF ABNORMAL REACTION OF THE PATIENT, OR OF LATER COMPLICATIO N, WITHOUT MENTION OF MISADVENTUR E AT THE TIME OF THE PROCEDURE Z87.891 PERSONAL 04-14-2017 HISTORY OF NICOTINE DEPENDENCE A41.9 Sepsis, 01-26-2017 unspecified organism 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 E11.9 Type 2 01-26-2017 diabetes mellitus without complicatio ns E66.9 Obesity, 01-26-2017 unspecified 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 01-26-2017 lity and hyponatremi a F32.9 Major 01-26-2017 depressive disorder, single episode, unspecified F41.9 Anxiety 01-26-2017 disorder, unspecified G25.0 Essential 01-26-2017 tremor G47.33 Obstructive 01-26-2017 sleep apnea (adult) (pediatric) J18.9 Pneumonia, 01-26-2017 unspecified organism J44.0 Chronic 01-26-2017 obstructive pulmonary disease with acute lower respiratory infection J44.1 Chronic 01-26-2017 obstructive pulmonary disease with (acute) exacerbatio n J90 Pleural 01-26-2017 effusion, not elsewhere classified J96.21 Acute and 01-26-2017 chronic respiratory failure with hypoxia J96.22 Acute and 01-26-2017 chronic respiratory failure with hypercapnia K56.7 Ileus, 01-26-2017 unspecified Z68.30 Body mass 01-26-2017 index (BMI) 30.0-30.9, adult Z85.46 Personal 01-26-2017 history of malignant neoplasm of prostate Z91.19 Patient's 01-26-2017 noncomplian ce with other medical treatment and regimen Z92.3 Personal 01-26-2017 history of irradiation J96.20 Acute and 01-19-2017 chronic respiratory failure, unspecified whether with hypoxia or hypercapnia J96.00 Acute 01-12-2017 respiratory failure, unspecified whether with hypoxia or hypercapnia R05 COUGH 12-31-2016 R06.02 SHORTNESS 12-31-2016 OF BREATH R40.0 SOMNOLENCE 12-31-2016 R53.83 OTHER 12-31-2016 FATIGUE R06.83 SNORING 12-08-2016 786.50 C32.9 MALIGNANT NEOPLASM OF LARYNX, UNSPECIFIED J96.01 ACUTE RESPIRATORY FAILURE WITH HYPOXIA J96.90 RESPIRATORY FAILURE, UNSP, UNSP W HYPOXIA OR HYPERCAPNIA S61.432A PUNCTURE WOUND W/O FOREIGN BODY OF LEFT HAND, INIT ENCNTR Results Labs Lab Lab Date Result Refere Interp Status Commen Order Detail nces retati t Range on Phosphate SerPl-mCnc (02-07-2017 03:10) Phospha 4.0 2.5-4.5 complet te 017 mg/dL ed SerPl-m 03:10 Cnc Magnesium SerPl-mCnc (02-07-2017 03:10) Magnesi 2 1.9 1.9-2.4 complet um 017 mg/dL ed SerPl-m 03:10 Cnc Phosphate SerPl-mCnc (01-31-2017 04:48) Phospha 2 3.3 2.5-4.5 complet te 017 mg/dL ed SerPl-m 04:48 Cnc Magnesium SerPl-mCnc (01-31-2017 04:48) Magnesi 01-31-2 1.7 1.9-2.4 complet um 017 mg/dL ed SerPl-m 04:48 Cnc Phosphate SerPl-mCnc (01-24-2017 08:21) Phospha 3.9 2.5-4.5 complet te 017 mg/dL ed SerPl-m 08:21 Cnc Magnesium SerPl-mCnc (01-24-2017 08:21) Magnesi 1.8 1.9-2.4 complet um 017 mg/dL ed SerPl-m 08:21 Cnc ESR Bld Qn (01-20-2017 05:01) ESR Bld 74 0-11 complet Qn 017 mm/hr ed 05:01 Phosphate SerPl-mCnc (01-20-2017 05:01) Phospha 4.6 2.5-4.5 complet te 017 mg/dL ed SerPl-m 05:01 Cnc Magnesium SerPl-mCnc (01-20-2017 05:01) Magnesi 2.1 1.9-2.4 complet um 017 mg/dL ed SerPl-m 05:01 Cnc CRP SerPl-mCnc (01-20-2017 05:01) CRP 10.6 0-0.9 complet SerPl-m 017 mg/dL ed Cnc 05:01 Ca-I SerPl ISE-sCnc (01-19-2017 02:26) Ca-I 4.5 4.6-5.1 complet SerPl 017 mg/dL ed ISE-sCn 02:26 c Phosphate SerPl-mCnc (01-19-2017 02:26) Phospha 3.6 2.5-4.5 complet te 017 mg/dL ed SerPl-m 02:26 Cnc Magnesium SerPl-mCnc (01-19-2017 02:26) Magnesi 2 2.2 1.9-2.4 complet um 017 mg/dL ed SerPl-m 02:26 Cnc Phosphate SerPl-mCnc (01-18-2017 02:51) Phospha 01-18- 2.9 2.5-4.5 complet te 017 mg/dL ed SerPl-m 02:51 Cnc Magnesium SerPl-mCnc (01-18-2017 02:51) Magnesi 01-18-2 2.0 1.9-2.4 complet um 017 mg/dL ed SerPl-m 02:51 Cnc Ca-I SerPl ISE-sCnc (01-18-2017 02:51) Ca-I 4.7 4.6-5.1 complet SerPl 017 mg/dL ed ISE-sCn 02:51 c MDRO Wnd (01-17-2017 14:09) Bacteri [id number] complet a XXX 017 06 No ed Anaerob 14:09 growth e+Aerob (qualif e Cult ier value) SCT NG1 NO GROWTH DAY 1. L CC XXX NOTAP complet VC-aCnc 017 NOT ed 14:09 APPLICA BLE L Phosphate SerPl-mCnc (01-17-2017 04:00) Phospha TCON 2.5-4.5 complet te 017 Multipl ed SerPl-m 04:00 e [facility] Cnc orders. Tests consoli dated. L mg/dL Magnesium SerPl-mCnc (01-17-2017 04:00) Magnesi TCON 1.9-2.4 complet um 017 Multipl ed SerPl-m 04:00 e [facility] Cnc orders. Tests consoli dated. L mg/dL Ca-I SerPl ISE-sCnc (01-17-2017 04:00) Ca-I 4.6 4.6-5.1 complet SerPl 017 mg/dL ed ISE-sCn 04:00 c Phosphate SerPl-mCnc (01-17-2017 03:11) Phospha 01-17- 3.4 2.5-4.5 complet te 017 mg/dL ed SerPl-m 03:11 Cnc Magnesium SerPl-mCnc (01-17-2017 03:11) Magnesi 2.2 1.9-2.4 complet um 017 mg/dL ed SerPl-m 03:11 Cnc Phosphate SerPl-mCnc (01-17-2017 02:12) Phospha [id number] 2.5-4.5 complet te 017 2 ed SerPl-m 02:12 clinica Cnc l laborat ory specime n rejecti on SCT CONTAM Contami nation suspect ed. Please Recolle ct. L mg/dL Magnesium SerPl-mCnc (01-17-2017 02:12) Magnesi [id number] 1.9-2.4 complet um 017 2 ed SerPl-m 02:12 clinica Cnc l laborat ory specime n rejecti on SCT CONTAM Contami nation suspect ed. Please Recolle ct. L mg/dL Magnesium SerPl-mCnc (01-16-2017 02:56) Magnesi 1.9 1.9-2.4 complet um 017 mg/dL ed SerPl-m 02:56 Cnc Ca-I SerPl ISE-sCnc (01-16-2017 02:56) Ca-I 4.4 4.6-5.1 complet SerPl 017 mg/dL ed ISE-sCn 02:56 c Phosphate SerPl-mCnc (01-16-2017 02:56) Phospha 3.8 2.5-4.5 complet te 017 mg/dL ed SerPl-m 02:56 Cnc Phosphate SerPl-mCnc (01-15-2017 02:11) Phospha 3.6 2.5-4.5 complet te 017 mg/dL ed SerPl-m 02:11 Cnc Magnesium SerPl-mCnc (01-15-2017 02:11) Magnesi 2.1 1.9-2.4 complet um 017 mg/dL ed SerPl-m 02:11 Cnc Ca-I SerPl ISE-sCnc (01-15-2017 02:11) Ca-I 4.3 4.6-5.1 complet SerPl 017 mg/dL ed ISE-sCn 02:11 c Potassium SerPl-sCnc (01-14-2017 18:22) Potassi 5.2 3.7-4.8 complet um 017 mmol/L ed SerPl-s 18:22 Cnc Magnesium SerPl-mCnc (01-14-2017 17:12) Magnesi 2.2 1.9-2.4 complet um 017 mg/dL ed SerPl-m 17:12 Cnc Phosphate SerPl-mCnc (01-14-2017 02:23) Phospha 2.3 2.5-4.5 complet te 017 mg/dL ed SerPl-m 02:23 Cnc Magnesium SerPl-mCnc (01-14-2017 02:23) Magnesi 1.5 1.9-2.4 complet um 017 mg/dL ed SerPl-m 02:23 Cnc Ca-I SerPl ISE-sCnc (01-14-2017 02:23) Ca-I 3.7 4.6-5.1 complet SerPl 017 mg/dL ed ISE-sCn 02:23 c Lactate Bld-sCnc (01-12-2017 16:32) Lactate 1.2 complet 017 mmol/L ed Bld-sCn 16:32 c Bacteria Bronch Aerobe Cult (01-12-2017 16:06) Bacteri [id number] complet a XXX 017 5 ed Anaerob 16:06 Charmaine e+Aerob e Cult albican s (organi sm) SCT CALB CHARMAINE ALBICAN S L CC XXX LGRO complet VC-aCnc 017 LIGHT ed 16:06 GROWTH L Fungus Tiss Cult (01-12-2017 16:06) Bacteri [id number] complet a XXX 017 5 ed Anaerob 16:06 Charmaine e+Aerob e Cult albican s (organi sm) SCT CALB CHARMAINE ALBICAN S L Bacteri [id number] complet a XXX 017 06 ed Anaerob 16:06 Charmaine e+Aerob e Cult glabrat a (organi sm) SCT TGLA CHARMAINE GLABRAT A L Bacteri [id number] complet a XXX 017 8 ed Anaerob 16:06 Charmaine e+Aerob e Cult tropica lis (organi sm) SCT CTRP CHARMAINE TROPICA LIS L MDRO Wnd (01-12-2017 15:31) Bacteri [id number] complet a XXX 017 00 not ed Anaerob 15:31 isolate e+Aerob d e Cult (qualif ier value) SCT NMDR NO MULTI DRUG RESISTA NT ORGANIS MS ISOLATE D L CC XXX NOTAP complet VC-aCnc 017 NOT ed 15:31 APPLICA BLE L Bacteria XXX Anaerobe+Aerobe Cult (01-12-2017 15:28) Bacteri [id number] complet a XXX 017 06 No ed Anaerob 15:28 growth e+Aerob (qualif e Cult ier value) SCT NGB6 NO GROWTH DAY 5. L Bacteria XXX Resp Cult (01-12-2017 15:28) Bacteri MURF complet a XXX 017 MIXED ed Anaerob 15:28 UPPER e+Aerob RESPIRA e Cult TORY KWESI L CC XXX MGRO complet VC-aCnc 017 MODERAT ed 15:28 E GROWTH L Ca-I SerPl ISE-sCnc (01-12-2017 15:28) Ca-I 4.4 4.6-5.1 complet SerPl 017 mg/dL ed ISE-sCn 15:28 c Magnesium SerPl-mCnc (01-12-2017 15:28) Magnesi 2.0 1.9-2.4 complet um 017 mg/dL ed SerPl-m 15:28 Cnc Phosphate SerPl-mCnc (01-12-2017 15:28) Phospha 2.5 2.5-4.5 complet te 017 mg/dL ed SerPl-m 15:28 Cnc
--- OUTSIDE RECORDS SUMMARY | 2017-04-28 15:03 | External Medical Summary Rpt ---
Author Author , [facility] Address Unknown Phone [email or web address] Purpose Continuity of Care Document - 12-08-2016 [...] 02:51 c MDRO Wnd (01-17-2017 14:09) Bacteri [id number] complet a XXX 017 06 No ed Anaerob 14:09 growth e+Aerob (qualif e Cult ier value) SCT NG1 NO GROWTH DAY 1. L CC XXX NOTAP complet VC-aCnc 017 NOT ed 14:09 APPLICA BLE L Phosphate SerPl-mCnc (01-17-2017 04:00) Phospha TCON 2.5-4.5 complet te 017 Multipl ed SerPl-m 04:00 e [facility] Cnc orders. Tests consoli dated. L mg/dL Magnesium SerPl-mCnc (01-17-2017 04:00) Magnesi TCON 1.9-2.4 complet um 017 Multipl ed SerPl-m 04:00 e [facility] Cnc orders. Tests consoli dated. L mg/dL Ca-I SerPl ISE-sCnc (01-17-2017 04:00) Ca-I 4.6 4.6-5.1 complet SerPl 017 mg/dL ed ISE-sCn 04:00 c Phosphate SerPl-mCnc (01-17-2017 03:11) Phospha 01-17- 3.4 2.5-4.5 complet te 017 mg/dL ed SerPl-m 03:11 Cnc Magnesium SerPl-mCnc (01-17-2017 03:11) Magnesi 2.2 1.9-2.4 complet um 017 mg/dL ed SerPl-m 03:11 Cnc Phosphate SerPl-mCnc (01-17-2017 02:12) Phospha [id number] 2.5-4.5 complet te 017 2 ed SerPl-m 02:12 clinica Cnc l laborat ory specime n rejecti on SCT CONTAM Contami nation suspect ed. Please Recolle ct. L mg/dL Magnesium SerPl-mCnc (01-17-2017 02:12) Magnesi [id number] 1.9-2.4 complet um 017 2 ed SerPl-m [...] Bacteria Bronch Aerobe Cult (01-12-2017 16:06) Bacteri [id number] complet a XXX 017 5 ed Anaerob 16:06 Charmaine e+Aerob e Cult albican s (organi sm) SCT CALB CHARMAINE ALBICAN S L CC XXX LGRO complet VC-aCnc 017 LIGHT ed 16:06 GROWTH L Fungus Tiss Cult (01-12-2017 16:06) Bacteri [id number] complet a XXX 017 5 ed Anaerob 16:06 Charmaine e+Aerob e Cult albican s (organi sm) SCT CALB CHARMAINE ALBICAN S L Bacteri [id number] complet a XXX 017 06 ed Anaerob 16:06 Charmaine e+Aerob e Cult glabrat a (organi sm) SCT TGLA CHARMAINE GLABRAT A L Bacteri [id number] complet a XXX 017 8 ed Anaerob 16:06 Charmaine e+Aerob e Cult tropica lis (organi sm) SCT CTRP CHARMAINE TROPICA LIS L MDRO Wnd (01-12-2017 15:31) Bacteri [id number] complet a XXX 017 00 not ed Anaerob 15:31 isolate e+Aerob d e Cult (qualif ier value) SCT NMDR NO MULTI DRUG RESISTA NT ORGANIS MS ISOLATE D L CC XXX NOTAP complet VC-aCnc 017 NOT ed 15:31 APPLICA BLE L Bacteria XXX Anaerobe+Aerobe Cult (01-12-2017 15:28) Bacteri [id number] complet a XXX 017 06 No ed [...]
[2017-04-28 15:08] LABS: ARTERIAL ABE 5.7 MMOL/L (-2.4-+2.3); ARTERIAL PO2 231.3 MMHG (80-100); ARTERIAL TCO2 32.2 MMOL/L (23-27)
[2017-04-28 15:09] LABS: OXYGEN 5LPM
--- NOTE | 2017-04-28 15:17 | Emergency Room Report ---
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 PT STATES HE FEELS FINE AND INSISTS NOTHING IS WRONG WITH HIM OTHER THAN HE IS TIRED BECAUSE HE GOT A NEW BED AND DIDN'T SLEEP WELL IN IT LAST NIGHT SO HE WAS UP ALL NIGHT. 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 N Clinical Suspician of Infection? N Mental Status: 1 - Regular (Normal Baseline) Sepsis Risk:Low Sepsis Risk Have you (or family members/close friends) recently traveled outside the [place]? N If Yes, where/when: Have you had exposure to infectious disease within the past month? N TB? Other? Specify: Source patient, RN notes reviewed, family, RN/MD Exam Limitations no limitations Comment This is a 77-year-old male patient with known history of chronic obstructive pulmonary disease and tracheostomy, oxygen dependent brought in by EMS for possible CO2 narcosis. Daughter stated that he was excessively sleepy this morning, however, patient advised that he went to sleep at 3:00 this morning and he didn't get much rest last night, reason why he was tired during the daytime. ALLERGIES Coded Allergies: No Known Allergies (10/31/16) Home Medications Reported Medications BUDESONIDE/FORMOTEROL FUMARATE (Symbicort 80-4.5 Mcg Inhaler) 1 PUFF IH BID TAMSULOSIN HCL (Flomax 0.4MG) 0.4 MG PO QHS Primidone (Primidone) 25 MG PO QHS Diazepam (Valium 10MG) 10 MG PO BID Ibuprofen (Advil) 200 MG PO PRN History Medical History General CAD? No Angina: No [place]: No Hypertension? No Hyperlipidemia? No CHF? No DVT? No PE? No COPD? No Asthma? No Anemia? No GERD? No Gastric ulcers? No GI Bleed? No Hernia? Yes Thyroid Problems? No Hypothyroidism? No CVA? No Seizures? No Diabetes? No Renal Insuffiency? No End Stage Renal Disease? No UTI? No Stones? Yes BPH? No GB Disease: No Nephritic Syndrome? No Asplenia? No Hepatitis? No Sickle Cell Disease? No Arthritis? No Migraines? No Cataracts? No Glaucoma? No MRSA? No HIV? No TB? No Anxiety? No Depression? 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 No Immunization Hx DT/Tetanus Unknown Flu NEVER Pneumonia NEVER Surgical Hx Previous Surgery?Y COLONOSCOPY KIDNEY STONES HAND Back Surgery TONSILS Family History Family Hx Diabetes No CAD No Hypertension Yes Hyperlipidemia No Cancer Yes TB No Social History Smoking Hx Smoker: Former Smoker Tobacco: Yes Type Cigarettes Packs/day < 1 Pack Alcohol Alcohol: No Review of Systems All Other Systems Reviewed and Negative Psychiatric/Neurological weakness, other (excessive daytime sleepiness) Physical Exam Vital Signs Vital Signs Date Time Temp Pulse Resp B/P Pulse O2 O2 Flow FiO2 Ox Delivery Rate 04/28 1529 56 18 102/54 99 15 04/28 1504 50 18 96/56 100 15 04/28 1500 100 04/28 1443 99.1 61 20 138/51 100 General Appearance normal appearance, WD/WN, no apparent distress Respiratory Status Yes: trachea midline, chest symmetrical, non tender chest. No: respiratory distress. Lung Sounds bilateral: normal breath sounds, lungs clear. 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 No Comment Based on the ABG the patient does not have a respiratory acidosis. He appears medically stable, at his baseline, in no acute distress. This was discussed in detail with patient as well as his family members, and he' ll be discharged home momentarily. Results/Orders Laboratory Tests 04/28/17 1508: ABG pH 7.40, ABG pCO2 (Temp Corrct 51.0 H, ABG pO2 (Temp Correct 231.3 H, ABG HCO3 30.6 H, ABG Total CO2 32.2 H, ABG O2 Sat (Calculated) 99.4, ABG Base Excess 5.7 H, Braeden Test N/A, Blood Gas Comments L BRACHIAL Orders Procedure Date/time Status ARTERIAL BLOOD GAS REQUEST 04/28 1443 Active OXYGEN PER NURSE 04/28 144 Active Departure Departure Time of Disposition 1509 Disposition DC Home or Self Care(routine) Clinical Impression Primary Impression: COPD (chronic obstructive pulmonary disease) Qualifiers: COPD type: unspecified COPD Qualified Code: J44.9 - Chronic obstructive pulmonary disease, unspecified Condition STABLE Referrals Salas Kumari MD (PCP/Family) Patient Instructions DI for Chronic Obstructive Pulmonary Disease Additional Instructions Please follow-up with Dr. Kumari on your next scheduled appointment. Discharge Counseling Counseled pt/family regarding diagnosis, test results, medications/RX, home care, follow up needs Comment Please follow-up with Dr. Kumari on your next scheduled appointment. ED Critical Care Critical Care No at 1933
--- NOTE | 2017-04-28 15:17 | Emergency Room Report ---
History of Present Illness Time Seen by [id number] Presenting Problem in Triage Pt arrived:Ambulance Stretcher Presenting Problem:PT BROUGHT IN FOLLOWING FAMILY'S CONCERN OF HIGH CO2. PT STATES HE FEELS FINE AND INSISTS NOTHING IS WRONG WITH HIM OTHER THAN HE IS TIRED BECAUSE HE GOT A NEW BED AND DIDN'T SLEEP WELL IN IT LAST NIGHT SO HE WAS UP ALL NIGHT. 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 N Clinical Suspician of Infection? N Mental Status: 1 - Regular (Normal Baseline) Sepsis Risk:Low Sepsis Risk Have you (or family members/close friends) recently traveled outside the [place]? N If Yes, where/when: Have you had exposure to infectious disease within the past month? N TB? Other? Specify: Source patient, RN notes reviewed, family, RN/MD Exam Limitations no limitations Comment This is a 77-year-old male patient with known history of chronic obstructive pulmonary disease and tracheostomy, oxygen dependent brought in by EMS for possible CO2 narcosis. Daughter stated that he was excessively sleepy this morning, however, patient advised that he went to sleep at 3:00 this morning and he didn't get much rest last night, reason why he was tired during the daytime. ALLERGIES Coded Allergies: No Known Allergies (10/31/16) Home Medications Reported Medications BUDESONIDE/FORMOTEROL FUMARATE (Symbicort 80-4.5 Mcg Inhaler) 1 PUFF IH BID TAMSULOSIN HCL (Flomax 0.4MG) 0.4 MG PO QHS Primidone (Primidone) 25 MG PO QHS Diazepam (Valium 10MG) 10 MG PO BID Ibuprofen (Advil) 200 MG PO PRN History Medical History General CAD? No Angina: No [place]: No Hypertension? No Hyperlipidemia? No CHF? No DVT? No PE? No COPD? No Asthma? No Anemia? No GERD? No Gastric ulcers? No GI Bleed? No Hernia? Yes Thyroid Problems? No Hypothyroidism? No CVA? No Seizures? No Diabetes? No Renal Insuffiency? No End Stage Renal Disease? No UTI? No Stones? Yes BPH? No GB Disease: No Nephritic Syndrome? No Asplenia? No Hepatitis? No Sickle Cell Disease? No Arthritis? No Migraines? No Cataracts? No Glaucoma? No MRSA? No HIV? No TB? No Anxiety? No Depression? 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 No Immunization Hx DT/Tetanus Unknown Flu NEVER Pneumonia NEVER Surgical Hx Previous Surgery?Y COLONOSCOPY KIDNEY STONES HAND Back Surgery TONSILS Family History Family Hx Diabetes No CAD No Hypertension Yes Hyperlipidemia No Cancer Yes TB No Social History Smoking Hx Smoker: Former Smoker Tobacco: Yes Type Cigarettes Packs/day < 1 Pack Alcohol Alcohol: No Review of Systems All Other Systems Reviewed and Negative Psychiatric/Neurological weakness, other (excessive daytime sleepiness) Physical Exam Vital Signs Vital Signs Date Time Temp Pulse Resp B/P Pulse O2 O2 Flow FiO2 Ox Delivery Rate 04/28 1529 56 18 102/54 99 15 04/28 1504 50 18 96/56 100 15 04/28 1500 100 04/28 1443 99.1 61 20 138/51 100 General Appearance normal appearance, WD/WN, no apparent distress Respiratory Status Yes: trachea midline, chest symmetrical, non tender chest. No: respiratory distress. Lung Sounds bilateral: normal breath sounds, lungs clear. 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 No Comment Based on the ABG the patient does not have a respiratory acidosis. He appears medically stable, at his baseline, in no acute distress. This was discussed in detail with patient as well as his family members, and he' ll be discharged home momentarily. Results/Orders Laboratory Tests 04/28/17 1508: ABG pH 7.40, ABG pCO2 (Temp Corrct 51.0 H, ABG pO2 (Temp Correct 231.3 H, ABG HCO3 30.6 H, ABG Total CO2 32.2 H, ABG O2 Sat (Calculated) 99.4, ABG Base Excess 5.7 H, Braeden Test N/A, Blood Gas Comments L BRACHIAL Orders Procedure Date/time Status ARTERIAL BLOOD GAS REQUEST 04/28 1443 Active OXYGEN PER NURSE 04/28 144 Active Departure Departure Time of Disposition 1509 Disposition DC Home or Self Care(routine) Clinical Impression Primary Impression: COPD (chronic obstructive pulmonary disease) Qualifiers: COPD type: unspecified COPD Qualified Code: J44.9 - Chronic obstructive pulmonary disease, unspecified Condition STABLE Referrals Salas Kumari MD (PCP/Family) Patient Instructions DI for Chronic Obstructive Pulmonary Disease Additional Instructions Please follow-up with Dr. Kumari on your next scheduled appointment. Discharge Counseling Counseled pt/family regarding diagnosis, test results, medications/RX, home care, follow up needs Comment Please follow-up with Dr. Kumari on your next scheduled appointment. ED Critical Care Critical Care No at 1933
[2017-04-28 15:29] VITALS: BP 102/54
== END 2017-04-28 15:30 | disposition home or self-care (01) ==
LOC: ER 14:41
PROVIDERS: Emergency Medicine
DX: J44.9 Chronic obstructive pulmonary disease, unspecified (principal); Z87.891 Personal history of nicotine dependence

== ENCOUNTER 2017-07-11 16:26 | Emergency (ER) | payer MEDICARE, OTHER ==
[~2017-07-11] VITALS: Ht 180.3 cm; Wt 77.6 kg
--- NOTE | 2017-07-11 16:37 | Emergency Room Report ---
History of Present Illness Time Seen by [id number] Presenting Problem in Triage Pt arrived:Ambulance Stretcher Presenting Problem:PT STATES HE CHOKED AT HOME AND SUCTIONED HIMSELF. 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 N Clinical Suspician of Infection? N Mental Status: 1 - Regular (Normal Baseline) Sepsis Risk:Low Sepsis Risk Have you (or family members/close friends) recently traveled outside the [place]? N If Yes, where/when: Have you had exposure to infectious disease within the past month? TB? Other? Specify: Patient with hx COPD requiring intubation and ultimately tracheostomy this past year. He had an episode of mucous plugging today which his cleared. EMS states he was stable and in NAD with sats in the upper 90's on his usual amount of 5LPM per trach on oxygen on their arrival. Patient stated he felt better but wanted to come to ER to get suctioned anyway. He denies vomiting or asphyxiation , feels better now. States he has quit smoking. No new SOB. ALLERGIES Coded Allergies: No Known Allergies (10/31/16) Home Medications Reported Medications BUDESONIDE/FORMOTEROL FUMARATE (Symbicort 80-4.5 Mcg Inhaler) 1 PUFF IH BID TAMSULOSIN HCL (Flomax 0.4MG) 0.4 MG PO QHS Primidone (Primidone) 25 MG PO QHS Diazepam (Valium 10MG) 10 MG PO BID Ibuprofen (Advil) 200 MG PO PRN History Medical History General CAD? No Angina: No [place]: No Hypertension? No Hyperlipidemia? No CHF? No DVT? No PE? No COPD? No Asthma? No Anemia? No GERD? No Gastric ulcers? No GI Bleed? No Hernia? Yes Thyroid Problems? No Hypothyroidism? No CVA? No Seizures? No Diabetes? No Renal Insuffiency? No End Stage Renal Disease? No UTI? No Stones? Yes BPH? No GB Disease: No Nephritic Syndrome? No Asplenia? No Hepatitis? No Sickle Cell Disease? No Arthritis? No Migraines? No Cataracts? No Glaucoma? No MRSA? No HIV? No TB? No Anxiety? No Depression? 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 No Immunization Hx DT/Tetanus Unknown Flu NEVER Pneumonia NEVER Surgical Hx Previous Surgery?Y COLONOSCOPY KIDNEY STONES HAND Back Surgery TONSILS Family History Family Hx Diabetes No CAD No Hypertension Yes Hyperlipidemia No Cancer Yes TB No Social History Smoking Hx Smoker: Former Smoker Tobacco: No Packs/day < 1 Pack Alcohol Alcohol: No Review of Systems All Other Systems Reviewed and Negative Respiratory see HPI Physical Exam Vital Signs Vital Signs Date Time Temp Pulse Resp B/P Pulse O2 O2 Flow FiO2 Ox Delivery Rate 07/11 1632 20 97 5 07/11 1627 98.7 69 20 108/56 97 5 General Appearance normal appearance, WD/WN, no apparent distress Eye Exam - bilateral eye normal exam, bilateral eye PERRL, bilateral eye EOMI Ear, Nose, Throat no distress; trach patent and functioning with no drainage or audible abnormal sounds. Neck normal inspection, non-tender, supple, full range of motion Respiratory Status Yes: trachea midline, chest symmetrical, non tender chest. No: respiratory distress, tender on palpation, use of accessory muscles, pain on inspiration, pain on expiration, productive cough, non productive cough (patent tracheostomy site). Lung Sounds bilateral: normal breath sounds, lungs clear, decreased breath sounds (hx COPD). Cardiovascular normal exam, regular rate/rhythm, no peripheral edema, no gallop, no JVD, no murmur, no rub, normal peripheral pulses Gastrointestinal normal bowel sounds, normal exam, non tender, soft, no organomegaly, no guarding, no rebound Extremities normal range of motion, normal inspection Neurologic alert, normal exam, no motor/sensory deficits, oriented x 3 (moves lips to communicate) Glascow Coma Scale Glascow Coma Scale Response Value EYE response: 4 Spontaneously 4 MOTOR response: 6 OBEYS 6 VERBAL response: 5 Oriented & Converses 5 Total 15 Skin intact Medical Decision Making LABS/Meds/Orders Pt receiving controlled substance in ED? No Progress ED Progress Notes 1 Date 07/11/17 Time 1707 Comment Patient is afebrile, has sats of 98-99, is in no distress, is pink and alert, able to swallow fluids easily. Family at bedside to receive teaching from RT regarding tracheostomy care and how to use NS and how to care for mucous plugging. ED Progress Notes 2 Date 07/11/17 Time 1731 Comment RT has given detailed care explanations. Patient is pink, alert, drinking liquids, NAD, afebrile, sats 98 per cent, lungs clear. Family has requested Rx for NS to use for tracheostomy suctioning and this has been called in by our RN. Departure Departure Time of Disposition 173 Disposition DC Home or Self Care(routine) Clinical Impression Primary Impression: Tracheostomy care Condition STABLE Referrals Salas Kumari MD (Family) Patient Instructions How to Take Care of a Tracheostomy Additional Instructions Try a few drops of sterile saline prior to suctioning to help release any plugging; see Dr. Kumari for follow up as needed. Discharge Counseling Counseled pt/family regarding diagnosis, home care, follow up needs ED Critical Care Critical Care No at 1732
[2017-07-11 17:38] VITALS: BP 115/65
--- OUTSIDE RECORDS SUMMARY | 2017-07-16 02:59 | External Medical Summary Rpt ---
Author Author [facility] Organization [facility] Address Unknown Phone Unavailable Care Team Providers Care Manager Machine Name Role Phone Eulalia VANEGAS PCP [phone] Encounter [facility] [id number] Date(s): 05/03/17 - 05/16/[address] [facility] [address] [place] [address]- [phone] Discharge Disposition: OP Self Care or Home [...]
--- OUTSIDE RECORDS SUMMARY | 2017-07-16 02:59 | External Medical Summary Rpt | Continuity of Care Document ---
Author Author Organization Address Unknown Phone Unavailable Care Team Providers Care Pay Station Department Manager Name Role Phone , Unavailable Unavailable EMS Current Medications Section EMS Allergies and Adverse Reactions EMS Past Medical History Medications Administered Section EMS Procedures Performed EMS Vital Signs EMS Patient Care Report Narrative Unit [id number] was dispatched non immediate to [facility] for a general transport going to [facility]. On scene, we found a 77 y/o male in chair. Pt was admitted for wound care. A report and paperwork was received from nurse Pt was transferred to the stretcher via stand and pivot assisted x1. Pt cannot go by any other means than ambulance due to needing respiratory monitoring due to trach. At destination, we transferred the pt to the chair via stand and pivot assisted x2. A report and paperwork was given to the nurse and pt care was transferred, signature was obtained.
--- OUTSIDE RECORDS SUMMARY | 2017-07-16 02:59 | External Medical Summary Rpt ---
Author Author [facility] Organization [facility] Address Unknown Phone Unavailable Care Team Providers Care Middle School Assistant Principal Name Role Phone Eulalia VANEGAS PCP [phone] Encounter [facility] [id number] Date(s): 05/16/17 - 05/23/17 [facility] [address] [place] [address]- Discharge Disposition: OP Self Care or Home [...]
--- OUTSIDE RECORDS SUMMARY | 2017-07-16 02:59 | External Medical Summary Rpt | Continuity of Care Document ---
Author Author Organization Address Unknown Phone Unavailable Care Team Providers Care Crude Tester Name Role Phone , Unavailable Unavailable EMS Current Medications Section EMS Allergies and Adverse Reactions EMS Past Medical History Medications Administered Section EMS Procedures Performed EMS Vital Signs EMS Patient Care Report Narrative PT ADMITTED TO [facility] ON 05/31/2017 FOR VASCULAR SURGERY FOR BILATERAL POPLITEAL ARTERY OCCLUSION. PT IS BEING [facility]/C[facility] TO [facility] NOT AVAILABLE AT SENDING. PT ON BEDSIDE, AWAKE, A & O X 04. PT DENIES C/C. PT IS ON 02 LISTED. SP02 LISTED. PT STAND AND SIT ON EMS COT. PT VITALS OBTAINED. PT CONDITION UNCHANGED ENROUTE. PT ASSISTED TO HOSPITAL BED BY CREW AND STAFF, WITH CARE TO STAFF
--- OUTSIDE RECORDS SUMMARY | 2017-07-16 02:59 | External Medical Summary Rpt | Continuity of Care Document ---
Author Author Organization Address Unknown Phone Unavailable Care Team Providers Care Trimmer Sawyer Name Role Phone , Unavailable Unavailable EMS Current Medications Section EMS Allergies and Adverse Reactions EMS Past Medical History Medications Administered Section EMS Procedures Performed EMS Vital Signs EMS Patient Care Report Narrative Unit [id number] was dispatched non immediate to [facility] for a general transport going to [facility]. On scene, we found a [...]
--- OUTSIDE RECORDS SUMMARY | 2017-07-16 02:59 | External Medical Summary Rpt | Continuity of Care Document ---
Author Author Organization Address Unknown Phone Unavailable Care Team Providers Care Lace Weaver Name Role Phone , Unavailable Unavailable EMS Current Medications Section EMS Allergies and Adverse Reactions EMS Past Medical History Medications Administered Section EMS Procedures Performed EMS Vital Signs EMS Patient Care Report Narrative Unit [id number] was dispatched non immediate to [facility] for a general transport going to [facility]. On scene, we found a 77 [...]
--- OUTSIDE RECORDS SUMMARY | 2017-07-16 02:59 | External Medical Summary Rpt ---
Author Author [facility] Organization [facility] Address Unknown Phone Unavailable Care Team Providers Care Pipe Fitter Marine Name Role Phone Eulalia VANEGAS PCP [phone] Encounter [facility] [id number] Date(s): 05/16/17 - 05/23/17 [facility] [address] [place] [address]- [phone] Discharge Disposition: OP Self Care or Home [...]
--- OUTSIDE RECORDS SUMMARY | 2017-07-16 02:59 | External Medical Summary Rpt ---
Author Author [facility] Organization [facility] Address Unknown Phone Unavailable Care Team Providers Care Building Maintenance Worker Name Role Phone Eulalia VANEGAS PCP [phone] Encounter [facility] [id number] Date(s): 04/25/17 - 05/02/17 [facility] [address] [place] [address]- [phone] Discharge Disposition: OP Self Care or Home [...]
--- OUTSIDE RECORDS SUMMARY | 2017-07-16 02:59 | External Medical Summary Rpt ---
Author Author [facility] Organization [facility] Address Unknown Phone Unavailable Care Team Providers Care Family Nurse Name Role Phone Eulalia VANEGAS PCP [phone] Encounter [facility] [id number] Date(s): 05/24/17 - 05/30/17 [facility] [address] [place] [address]- [phone] Discharge Disposition: OP Self Care or Home [...]
--- OUTSIDE RECORDS SUMMARY | 2017-07-16 02:59 | External Medical Summary Rpt ---
Author Author [facility] Organization [facility] Address Unknown Phone Unavailable Care Team Providers Care Embedded Engineer Name Role Phone Eulalia VANEGAS PCP [phone] Encounter [facility] [id number] Date(s): 05/24/17 - 05/30/17 [facility] [address] [place] [address]- Discharge Disposition: OP Self Care or Home [...]
--- OUTSIDE RECORDS SUMMARY | 2017-07-16 02:59 | External Medical Summary Rpt ---
Author Author [facility] Organization [facility] Address Unknown Phone Unavailable Care Team Providers Care Slitter Cut Off Operator Name Role Phone Eulalia VANEGAS PCP [phone] Encounter [facility] [id number] Date(s): 05/03/17 - 05/16/[address] [facility] [address] [place] [address]- Discharge Disposition: OP Self Care or Home [...]
--- OUTSIDE RECORDS SUMMARY | 2017-07-16 02:59 | External Medical Summary Rpt ---
Author Author [facility] Organization [facility] Address Unknown Phone Unavailable Care Team Providers Care Working Supervisor Name Role Phone Eulalia VANEGAS PCP [phone] Encounter [facility] [id number] Date(s): 04/25/17 - 05/02/17 [facility] [address] [place] [address]- Discharge Disposition: OP Self Care or Home [...]
--- OUTSIDE RECORDS SUMMARY | 2017-07-16 02:59 | External Medical Summary Rpt | Continuity of Care Document ---
Author Author Organization Address Unknown Phone Unavailable Care Team Providers Care Behavioral Science Chair Name Role Phone , Unavailable Unavailable EMS Current Medications Section EMS Allergies and Adverse Reactions EMS Past Medical History Medications Administered Section EMS Procedures Performed EMS Vital Signs EMS Patient Care Report Narrative PT ADMITTED TO [facility] ON 05/31/2017 FOR VASCULAR SURGERY FOR BILATERAL POPLITEAL ARTERY OCCLUSION. PT IS BEING D/C'D TO [facility] NOT AVAILABLE AT SENDING. PT ON BEDSIDE, AWAKE, A & O X 04. PT DENIES C/C. PT IS ON 02 LISTED. SP02 LISTED. PT STAND AND SIT ON EMS COT. PT VITALS OBTAINED. PT CONDITION UNCHANGED ENROUTE. PT ASSISTED TO HOSPITAL BED BY CREW AND STAFF, WITH CARE TO STAFF
--- OUTSIDE RECORDS SUMMARY | 2017-07-16 02:59 | External Medical Summary Rpt | Continuity of Care Document ---
Author Author Organization Address Unknown Phone Unavailable Care Team Providers Care Commercial Internship Name Role Phone , Unavailable Unavailable EMS Current Medications Section EMS Allergies and Adverse Reactions EMS Past Medical History Medications Administered Section EMS Procedures Performed EMS Vital Signs EMS Patient Care Report Narrative Unit [id number] was dispatched non immediate to [facility] for a general transport going to [facility]. On scene, we found a 77 [...]
--- OUTSIDE RECORDS SUMMARY | 2017-07-16 03:01 | External Medical Summary Rpt | CCD ---
Author Author , ANT CAIN Address Unknown Phone [email or web address] Mobile Immunization Name Date Rout CVX Reac Dose Comm Prov Is Faci e tion ent ider Refu lity Give sed n Pneu 10-2 109 999 Hist D203 No D203 moco 7-20 oric 45 45 ccal 16 al , UF Info rmat ion - Sour ce Unsp ecif ied Infl 09-2 135 999 Hist D203 No D203 uenz 2-20 oric 45 45 a, 16 al High Info rmat Dose ion - Sour ce Unsp ecif ied
--- OUTSIDE RECORDS SUMMARY | 2017-07-16 03:01 | External Medical Summary Rpt | CCD ---
Author Author , ANT CAIN Address Unknown Phone [email or web address] Purpose Continuity of Care Document - 12-08-2016 [...] R53.83 OTHER 12-31-2016 FATIGUE R06.83 SNORING 12-08-2016 Results Labs Lab Lab Date Result Refere Interp Status Commen Order Detail nces retati t Range on Bacteria Wnd Cult (06-26-2017 12:50) Bacteri [id number] complet a XXX 017 4 ed Anaerob 12:50 Pseudom e+Aerob onas e Cult aerugin yas (organi sm) SCT PSAR PSEUDOM ONAS AERUGIN YAS L Comment: 1+ BIOTYPE 2 Pseudomonas aeruginosa (organism) CC XXX MGRO complet VC-aCnc 017 MODERAT ed 12:50 E GROWTH L Comment: 2+ MIXED SKIN KWESI Bacteria Wnd Cult (06-09-2017 16:05) Bacteri [id number] complet a XXX 017 01 ed Anaerob 16:05 Methici e+Aerob llin e Cult resista nt Staphyl ococcus aureus (organi sm) SCT MRSA1 (MRSA) L Bacteri [id number] complet a XXX 017 ed Anaerob 16:05 Staphyl e+Aerob ococcus e Cult aureus (organi sm) SCT SAUR STAPHYL OCOCCUS AUREUS L Bacteri [id number] complet a XXX 017 4 ed Anaerob 16:05 Pseudom e+Aerob onas e Cult aerugin yas (organi sm) SCT PSAR PSEUDOM ONAS AERUGIN YAS L CC XXX HG complet VC-aCnc 017 HEAVY ed 16:05 GROWTH L Phosphate SerPl-mCnc (06-09-2017 02:41) Phospha 2.9 2.5-4.5 complet te 017 mg/dL ed SerPl-m 02:41 Cnc Magnesium SerPl-mCnc (06-09-2017 02:41) Magnesi 1.5 1.9-2.4 complet um 017 mg/dL ed SerPl-m 02:41 Cnc ESR Bld Qn (06-09-2017 02:41) ESR Bld 73 0-11 complet Qn 017 mm/hr ed 02:41 CRP SerPl-mCnc (06-09-2017 02:41) CRP 7.3 0-0.9 complet SerPl-m 017 mg/dL ed Cnc 02:41 Phosphate SerPl-mCnc (06-05-2017 04:32) Phospha 2.4 2.5-4.5 complet te 017 mg/dL ed SerPl-m 04:32 Cnc Magnesium SerPl-mCnc (06-05-2017 04:32) Magnesi 1.4 1.9-2.4 complet um 017 mg/dL ed SerPl-m 04:32 Cnc Ca-I SerPl ISE-sCnc (06-05-2017 04:32) Ca-I 4.8 4.6-5.1 complet SerPl 017 mg/dL ed ISE-sCn 04:32 c MDRO Wnd (06-02-2017 15:54) Bacteri [id number] complet a XXX 017 01 ed Anaerob 15:54 Methici e+Aerob llin e Cult resista nt Staphyl ococcus aureus (organi sm) SCT MRSA1 (MRSA) L Bacteri [id number] complet a XXX 017 ed Anaerob 15:54 Staphyl e+Aerob ococcus e Cult aureus (organi sm) SCT SAUR STAPHYL OCOCCUS AUREUS L CC XXX NOTAP complet VC-aCnc 017 NOT ed 15:54 APPLICA BLE L Lactate Bld-sCnc (05-30-2017 22:05) Lactate 0.9 complet 017 mmol/L ed Bld-sCn 22:05 c Gas panel in Arterial blood (04-28-2017 15:08) Arteria N/A complet l 017 ed patency 15:08 Wrist artery --pre arteria l punctur e SOURCE L complet 017 BRACHIA ed 15:08 L Phosphate SerPl-mCnc (02-07-2017 03:10) Phospha 2 4.0 2.5-4.5 complet te 017 mg/dL ed SerPl-m 03:10 Cnc Magnesium SerPl-mCnc (02-07-2017 03:10) Magnesi 02-07-2 1.9 1.9-2.4 complet um 017 mg/dL ed SerPl-m 03:10 Cnc Phosphate SerPl-mCnc (01-31-2017 04:48) Phospha 01-31-2 3.3 2.5-4.5 complet te 017 mg/dL ed SerPl-m 04:48 Cnc Magnesium SerPl-mCnc (01-31-2017 04:48) Magnesi 01-31-2 1.7 1.9-2.4 complet um 017 mg/dL ed SerPl-m 04:48 Cnc Phosphate SerPl-mCnc (01-24-2017 08:21) Phospha 01-24-2 3.9 2.5-4.5 complet te 017 mg/dL ed SerPl-m 08:21 Cnc Magnesium SerPl-mCnc (01-24-2017 08:21) Magnesi 01-24-2 1.8 1.9-2.4 complet um 017 mg/dL ed SerPl-m 08:21 Cnc ESR Bld Qn (01-20-2017 05:01) ESR Bld 2 74 0-11 complet Qn 017 mm/hr ed 05:01 Phosphate SerPl-mCnc (01-20-2017 05:01) Phospha 01-20-2 4.6 2.5-4.5 complet te 017 mg/dL ed SerPl-m 05:01 Cnc Magnesium SerPl-mCnc (01-20-2017 05:01) Magnesi 01-20-2 2.1 1.9-2.4 complet um 017 mg/dL ed SerPl-m 05:01 Cnc CRP SerPl-mCnc (01-20-2017 05:01) CRP 10.6 0-0.9 complet SerPl-m 017 mg/dL ed Cnc 05:01 Ca-I SerPl ISE-sCnc (01-19-2017 02:26) Ca-I 4.5 4.6-5.1 complet SerPl 017 mg/dL ed ISE-sCn 02:26 c Phosphate SerPl-mCnc (01-19-2017 02:26) Phospha 3.6 2.5-4.5 complet te 017 mg/dL ed SerPl-m 02:26 Cnc Magnesium SerPl-mCnc (01-19-2017 02:26) Magnesi 2.2 1.9-2.4 complet um 017 mg/dL ed SerPl-m 02:26 Cnc Phosphate SerPl-mCnc (01-18-2017 02:51) Phospha 2.9 2.5-4.5 complet te 017 mg/dL ed SerPl-m 02:51 Cnc Magnesium SerPl-mCnc (01-18-2017 02:51) Magnesi 01-18- 2.0 1.9-2.4 complet um 017 mg/dL ed SerPl-m 02:51 Cnc Ca-I SerPl ISE-sCnc (01-18-2017 02:51) Ca-I 4.7 4.6-5.1 complet SerPl 017 mg/dL ed ISE-sCn 02:51 c MDRO Wnd (01-17-2017 14:09) Bacteri [id number] complet a XXX 017 06 No ed Anaerob 14:09 growth e+Aerob (qualif e Cult ier value) SCT NG1 NO GROWTH DAY 1. L CC XXX NOTAP complet VC-aCnc 017 NOT ed 14:09 APPLICA BLE L Ca-I SerPl ISE-sCnc (01-17-2017 04:00) Ca-I 4.6 4.6-5.1 complet SerPl 017 mg/dL ed ISE-sCn 04:00 c Phosphate SerPl-mCnc (01-17-2017 04:00) Phospha TCON 2.5-4.5 complet te 017 Multipl ed SerPl-m 04:00 e [facility] Cnc orders. Tests consoli dated. L mg/dL Magnesium SerPl-mCnc (01-17-2017 04:00) Magnesi TCON 1.9-2.4 complet um 017 Multipl ed SerPl-m 04:00 e [facility] Cnc orders. Tests consoli dated. L mg/dL Phosphate SerPl-mCnc (01-17-2017 03:11) Phospha 3.4 2.5-4.5 complet te 017 mg/dL ed SerPl-m 03:11 Cnc Magnesium SerPl-mCnc (01-17-2017 03:11) Magnesi 2.2 1.9-2.4 complet um 017 mg/dL ed SerPl-m 03:11 Cnc Phosphate SerPl-mCnc (01-17-2017 02:12) Phospha [id number] 2.5-4.5 complet te 017 2 ed SerPl-m 02:12 clinica [facility] l laborat ory specime n rejecti on SCT CONTAM Contami nation suspect ed. Please Recolle ct. L mg/dL Magnesium SerPl-mCnc (01-17-2017 02:12) Magnesi [id number] 1.9-2.4 complet um 017 2 ed SerPl-m 02:12 clinica [facility] l laborat ory specime n rejecti on SCT CONTAM Contami nation suspect ed. Please Recolle ct. L mg/dL Phosphate SerPl-mCnc (01-16-2017 02:56) Phospha 3.8 2.5-4.5 complet te 017 mg/dL ed SerPl-m 02:56 Cnc Magnesium SerPl-mCnc (01-16-2017 02:56) Magnesi 1.9 1.9-2.4 complet um 017 mg/dL ed SerPl-m 02:56 Cnc Ca-I SerPl ISE-sCnc (01-16-2017 02:56) Ca-I 4.4 4.6-5.1 complet SerPl 017 mg/dL ed ISE-sCn 02:56 c Phosphate SerPl-mCnc (01-15-2017 02:11) Phospha 3.6 2.5-4.5 [...] Bacteria Bronch Aerobe Cult (01-12-2017 16:06) Bacteri [id number] complet a XXX 017 5 ed Anaerob 16:06 Charmaine e+Aerob e Cult albican s (organi sm) SCT CALB CHARMAINE ALBICAN S L CC XXX LGRO complet VC-aCnc 017 LIGHT ed 16:06 GROWTH L Fungus Tiss Cult (01-12-2017 16:06) Bacteri [id number] complet a XXX 017 5 ed Anaerob 16:06 Charmaine e+Aerob e Cult albican s (organi sm) SCT CALB CHARMAINE ALBICAN S L Bacteri [id number] complet a XXX 017 06 ed Anaerob 16:06 Charmaine e+Aerob e Cult glabrat a (organi sm) SCT TGLA CHARMAINE GLABRAT A L Bacteri [id number] complet a XXX 017 8 ed Anaerob 16:06 Charmaine e+Aerob e Cult tropica lis (organi sm) SCT CTRP CHARMAINE TROPICA LIS L MDRO Wnd (01-12-2017 15:31) Bacteri [id number] complet a XXX 017 00 not ed Anaerob 15:31 isolate e+Aerob d e Cult (qualif ier value) SCT NMDR NO MULTI DRUG RESISTA NT ORGANIS MS ISOLATE D L CC XXX NOTAP complet VC-aCnc 017 NOT ed 15:31 APPLICA BLE L Ca-I SerPl ISE-sCnc (01-12-2017 15:28) Ca-I 4.4 4.6-5.1 complet SerPl 017 mg/dL ed ISE-sCn 15:28 c Phosphate SerPl-mCnc (01-12-2017 15:28) Phospha 2.5 2.5-4.5 complet te 017 mg/dL ed SerPl-m 15:28 Cnc Magnesium SerPl-mCnc (01-12-2017 15:28) Magnesi 2.0 1.9-2.4 complet um 017 mg/dL ed SerPl-m 15:28 Cnc Bacteria XXX Anaerobe+Aerobe Cult (01-12-2017 15:28) Bacteri [id number] complet a XXX 017 06 No ed Anaerob 15:28 growth e+Aerob (qualif e Cult ier value) SCT NGB6 NO GROWTH DAY 5. L Bacteria XXX Resp Cult (01-12-2017 15:28) Bacteri MURF complet a XXX 017 MIXED ed Anaerob 15:28 UPPER e+Aerob RESPIRA e Cult TORY KWESI L CC XXX 04-12-2 MGRO complet -[facility] 017 MODERAT ed 15:28 E GROWTH L
--- OUTSIDE RECORDS SUMMARY | 2017-07-16 03:01 | External Medical Summary Rpt | CCD ---
Author Author , ANT CAIN Address Unknown Phone [email or web address] Immunization Name Date Rout CVX Reac Dose [...]
--- OUTSIDE RECORDS SUMMARY | 2017-07-16 03:01 | External Medical Summary Rpt ---
Author Author [facility] Organization [employer] Address Unknown Phone Unavailable Results Gas panel in Arterial blood Observa Value Referen Units Interpr Notes Date tion ce etation Range Base -2.4-+2.3 MMOL/L High No Apr 28 excess in informati 2017 3:08 Arterial on in PM blood source data Arteria N/A No No No No Apr 28 l informa informa informa informa 2016 patency tion in tion in tion in tion in 3:08 PM Wrist source source source source artery data data data data --pre arteria l punctur e Bicarbona 22.0 - MMOL/L High No Apr 28 te 26.0 informati 2016 3:08 [Moles/vo on in PM lume] in source Arterial data blood Oxygen No No No No Apr 28 content informati informati informati informati 2017 3:08 in on in on in on in on in PM Arterial source source source source blood data data data data Carbon 35.0 - MMHG High Apr 28 dioxide 45.0 2016 3:08 [Partial CRITICAL PM pressure] RESULTS in Arterial RESU blood LTS CALLED TO: THOMAS VORA 04/28/17 1508 Harika [place] pH of 7.35 - MMOL/L Normal No Apr 28 Arterial 7.45 informati 2016 3:08 blood on in PM source data Oxygen 80 - 100 MMHG High No Apr 28 [Partial informati 2017 3:08 pressure] on in PM in source Arterial data blood Oxygen 90 - 100 % Normal No Apr 28 saturatio informati 2017 3:08 n.calcula on in PM cori from source oxygen data partial pressure in Arterial blood SOURCE L No No No No Apr 28 BRACHIA informa informa informa informa 2017 L tion in tion in tion in tion in 3:08 PM source source source source data data data data Carbon 23 - 27 MMOL/L High No Apr 28 dioxide, informati 2017 3:08 total on in PM [Moles/vo source lume] in data Arterial blood
--- OUTSIDE RECORDS SUMMARY | 2017-07-16 03:01 | External Medical Summary Rpt | CCD ---
Author Author , ANT CAIN Address Unknown Phone [email or web address] Purpose Continuity of Care Document - 12-08-2016 [...] on Bacteria Wnd Cult (06-26-2017 12:50) Bacteri [id number] complet a XXX 017 4 ed Anaerob 12:50 Pseudom e+Aerob onas e Cult aerugin yas (organi sm) SCT PSAR PSEUDOM ONAS AERUGIN YAS L Comment: 1+ BIOTYPE 2 Pseudomonas aeruginosa (organism) CC XXX MGRO complet VC-aCnc 017 MODERAT ed 12:50 E GROWTH L Comment: 2+ MIXED SKIN KWESI Bacteria Wnd Cult (06-09-2017 16:05) Bacteri [id number] complet a XXX 017 01 ed Anaerob 16:05 Methici e+Aerob llin e Cult resista nt Staphyl ococcus aureus (organi sm) SCT MRSA1 (MRSA) L Bacteri [id number] complet a XXX 017 ed Anaerob 16:05 Staphyl e+Aerob ococcus e Cult aureus (organi sm) SCT SAUR STAPHYL OCOCCUS AUREUS L Bacteri [id number] complet a XXX 017 4 ed Anaerob [...] 04:32 c MDRO Wnd (06-02-2017 15:54) Bacteri [id number] complet a XXX 017 01 ed Anaerob 15:54 Methici e+Aerob llin e Cult resista nt Staphyl ococcus aureus (organi sm) SCT MRSA1 (MRSA) L Bacteri [id number] complet a XXX 017 ed Anaerob 15:54 [...] 02:51 c MDRO Wnd (01-17-2017 14:09) Bacteri [id number] complet a XXX 017 06 No ed [...] te 017 Multipl ed SerPl-m 04:[address] [facility] Cnc orders. Tests consoli dated. L mg/dL Magnesium SerPl-mCnc (01-17-2017 04:00) Magnesi TCON 1.9-2.4 complet um 017 Multipl ed SerPl-m 04:[address] [facility] Cnc orders. Tests consoli dated. L mg/dL Phosphate SerPl-mCnc (01-17-2017 03:11) Phospha 3.4 2.5-4.5 complet te 017 mg/dL ed SerPl-m 03:11 Cnc Magnesium SerPl-mCnc (01-17-2017 03:11) Magnesi 2.2 1.9-2.4 complet um 017 mg/dL ed SerPl-m 03:11 Cnc Phosphate SerPl-mCnc (01-17-2017 02:12) Phospha [id number] 2.5-4.5 complet te 017 2 ed SerPl-m 02:12 clinica [facility] l laborat ory specime n rejecti on SCT CONTAM Contami nation suspect ed. Please Recolle ct. L mg/dL Magnesium SerPl-mCnc (01-17-2017 02:12) Magnesi [id number] 1.9-2.4 complet um 017 2 ed SerPl-m 02:12 clinica [facility] l laborat ory specime n rejecti on [...] Bacteria Bronch Aerobe Cult (01-12-2017 16:06) Bacteri [id number] complet a XXX 017 5 ed Anaerob 16:06 Charmaine e+Aerob e Cult albican s (organi sm) SCT CALB CHARMAINE ALBICAN S L CC XXX LGRO complet VC-aCnc 017 LIGHT ed 16:06 GROWTH L Fungus Tiss Cult (01-12-2017 16:06) Bacteri [id number] complet a XXX 017 5 ed Anaerob 16:06 Charmaine e+Aerob e Cult albican s (organi sm) SCT CALB CHARMAINE ALBICAN S L Bacteri 5530551 complet a XXX 017 06 ed Anaerob 16:06 Charmaine e+Aerob e Cult glabrat a (organi sm) SCT TGLA CHARMAINE GLABRAT A L Bacteri [id number] complet a XXX 017 8 ed Anaerob 16:06 Charmaine e+Aerob e Cult tropica lis (organi sm) SCT CTRP CHARMAINE TROPICA LIS L MDRO Wnd (01-12-2017 15:31) Bacteri [id number] complet a XXX 017 00 not ed [...] Bacteria XXX Anaerobe+Aerobe Cult (01-12-2017 15:28) Bacteri [id number] complet a XXX 017 06 No ed Anaerob 15:28 growth e+Aerob (qualif e Cult ier value) SCT NGB6 NO GROWTH DAY 5. L Bacteria XXX Resp Cult (01-12-2017 15:28) Bacteri MURF complet a XXX 017 MIXED ed Anaerob 15:28 UPPER e+Aerob RESPIRA e Cult TORY KWESI L CC XXX 04-12-2 MGRO complet -[facility] 017 MODERAT ed 15:28 E GROWTH L
== END 2017-07-11 17:42 | disposition home or self-care (01) ==
LOC: ER 16:26
DX: J95.09 Other tracheostomy complication (principal); Z87.891 Personal history of nicotine dependence; J44.9 Chronic obstructive pulmonary disease, unspecified

== ENCOUNTER → 2017-07-28 | Outpatient (CLI) | payer MEDICARE, OTHER ==
--- NOTE | 2017-07-29 07:41 | RADIOLOGY REPORT PS360 ---
CHEST(2 VIEWS-NOT PORTABLE) HISTORY: HEMOPTYSIS ORDERING PHYSICIAN: Salas Kumari MD PATIENT AGE: 77 years COMPARISON: 01/12/2017 FINDINGS: A tracheostomy tube is present in satisfactory position. Unremarkable cardiovascular structures. There are minimal atelectatic changes in the lung bases. Bowel interposition is present on the right with gas-filled loops of small and large bowel noted with a few scattered air-fluid levels in the right upper quadrant. No acute bony anomalies. IMPRESSION: 1. Bibasilar atelectatic changes 2. Bowel interposition with air-fluid levels in the right upper quadrant within the bowel. Acute abdomen series may be of further value
== END ==
LOC: RAD 17:37
DX: R04.2 Hemoptysis (principal)